=== PATIENT | female | born 1935 | race Caucasian/White ===

== ENCOUNTER 2017-11-19 13:00 | Outpatient (CLI) | payer MEDICARE, OTHER | END 2017-11-19 13:01 | disposition home or self-care (01) | LOC: BICRAD 13:00 | PROVIDERS: ATTEND Nurse Practitioner Family | DX: R06.02 Shortness of breath (principal) | CPT/HCPCS: 71046 ==

== ENCOUNTER 2018-02-21 10:52 | Outpatient (CLI) | payer MEDICARE ==
--- NOTE | 2018-02-21 13:04 | RAD ---
LEFT SCAPULA 2 VIEWS: HISTORY: The patient fell 5 weeks ago. Pain. COMPARISON: None. FINDINGS: There is an incompletely healed distal clavicle fracture. With regard to the scapula, no fracture. No cortical irregularity or periosteal reaction. The visualized left ribs are unremarkable. There is a nonspecific calcification which is presumed to be in the soft tissues measuring 1.6 cm. IMPRESSION: Left clavicle fracture as above. POS: [facility]
--- NOTE | 2018-02-21 13:05 | RAD ---
THREE VIEWS LEFT SHOULDER: HISTORY: Fall five weeks ago. Pain. COMPARISON: None. FINDINGS: Nonhealed distal clavicle fracture. Glenohumeral joint space is preserved. No fracture or dislocation. The visualized scapula and ribs are unremarkable. IMPRESSION: Distal clavicle fracture, unhealed. POS: [facility]
== END 2018-02-21 10:53 | disposition home or self-care (01) ==
LOC: SCSRAD 10:52
PROVIDERS: ATTEND Family Medicine
DX: S42.92XD Fracture of left shoulder girdle, part unspecified, subsequent encounter for fracture with routine healing (principal); S42.032D Displaced fracture of lateral end of left clavicle, subsequent encounter for fracture with routine healing

== ENCOUNTER 2018-03-10 19:30 | Outpatient (CLI) | payer MEDICARE | END 2018-03-10 19:31 | disposition home or self-care (01) | LOC: SLEEPLAB 19:30 | PROVIDERS: ATTEND Physician Assistant | DX: G47.30 Sleep apnea, unspecified (principal); G47.33 Obstructive sleep apnea (adult) (pediatric); I10 Essential (primary) hypertension; I63.9 Cerebral infarction, unspecified; G45.9 Transient cerebral ischemic attack, unspecified | CPT/HCPCS: 95811 ==

== ENCOUNTER 2018-06-05 11:14 | Outpatient (CLI) | payer MEDICARE | END 2018-06-05 11:15 | disposition home or self-care (01) | PROVIDERS: ATTEND Internal Medicine Gastroenterology | DX: R13.10 Dysphagia, unspecified (principal); I67.89 Other cerebrovascular disease | CPT/HCPCS: G8996-GN-CI; G8997-GN-CI; G8998-GN-CI ==

== ENCOUNTER 2018-08-22 13:47 | Inpatient (IN) | payer MEDICARE ==
[~2018-08-22 13:47] MED LIST: ISOVUE-370 76%-LOCM 1 ML ONE
[2018-08-22 14:22] LABS: #Basophils 0.1 thou/uL (0.0-0.2); #Eosinphils 0.4 thou/uL (0.0-0.7); #Lymphocytes 2.5 thou/uL (1.20-3.40); #Monocytes 0.7 thou/uL (0.11-0.59); #Neutrophils 5.1 thou/uL (1.40-6.50); %Basophils 1.2 % (0.0-1.0); %Eosinophils 4.2 % (0.0-10.0); %Lymphocytes 28.5 % (21.0-51.0); %Monocytes 8.4 % (0.0-10.0); %Neutrophils 57.7 % (42.0-75.0); Hemoglobin 15.2 g/dL (12.0-16.0); Mean Corpuscular HGB CONC 32.7 g/dL (32.0-36.0); Mean Corpuscular Hemoglobin 29.6 pg (27.0-31.0); Mean Corpuscular Volume 90.5 fL (78.0-98.0); Mean Platelet Volume 7.3 fL (7.4-10.4); Platelet Count 356 thou/uL (130-400); RBC Distribution Width 12.4 % (11.5-14.5); Red Blood Cell (RBC) Count 5.13 mill/uL (4.20-5.40); White Blood Cell (WBC) Count 8.8 thou/uL (4.8-10.8)
[2018-08-22 14:45] LABS: ALT (SGPT) 14 U/L (8-55); AST (SGOT) 21 U/L (5-34); Albumin 4.3 g/dL (3.4-4.8); Alkaline Phosphatase 79 U/L (40-150); Anion Gap 11 mmol/L (10-20); BUN (Urea Nitrogen) 11 mg/dL (9.8-20.1); Calc. Creatinine Clearance 0 mL/min (70-130); Calcium 9.6 mg/dL (7.8-10.44); Carbon Dioxide 24 mmol/L (23-31); Chloride 105 mmol/L (98-107); Estimated GFR-MDRD 71; Globulin 2.5 g/dL (2.4-3.5); Glucose 116 mg/dL (83-110); Potassium 4.2 mmol/L (3.5-5.1); Protein, Total 6.8 g/dL (6.0-8.3); Sodium 136 mmol/L (136-145)
--- NOTE | 2018-08-22 14:46 | RAD ---
CHEST 1 VIEW: DATE: 08/22/2018. TIME: 2:37 p.m. HISTORY: Chest pain and shortness of breath. FINDINGS: Comparison is made with the exam of 11/19/2017. The heart size is borderline. The aorta is tortuous. The lungs are expanded without focal areas of consolidation, pneumothoraces, or pleural effusions. There is no evidence of jeffrey pulmonary edema. IMPRESSION: No evidence of acute process. POS: [facility]
[2018-08-22 14:51] LABS: CKMB 0.6 ng/mL (0-6.6); Troponin I Less than 0.010 ng/mL (< 0.028)
--- NOTE | 2018-08-22 17:14 | CT ---
CT HEAD NONCONTRAST 08/22/18 HISTORY: Dizziness. Altered mental status. COMPARISON: 03/19/17. FINDINGS: There is no evidence of acute intracranial hemorrhage or infarct. Diffuse cortical atrophy and mild c hronic ischemic small vessel disease. There is no mass effect, or shift of midline structures. Calcif ication within the arterial structures. The visualized paranasal sinuses remain well aerated. IMPRESSION: Chronic type findings are stable. No acute intracranial abnormalities are demonstrated on noncontrast CT head. POS: [facility]
--- NOTE | 2018-08-22 17:26 | CT ---
CT ARTERIOGRAM CHEST WITH IV CONTRAST AND 3D MIP IMAGING: Date: 08/22/18 HISTORY: Chest pain. Dyspnea. FINDINGS: There is good contrast opacification of the pulmonary arteries. Contrast has not yet reached the aort a. Calcification within the arterial structures. Lungs are hyperinflated. No mediastinal adenopathy i s evident. IMPRESSION: 1. No CT evidence of pulmonary embolus. 2. Atherosclerosis. 3. COPD. POS: [facility]
[2018-08-22 18:41] VITALS: BMI 21.6
[2018-08-22 18:50] LABS: Troponin I Less than 0.010 ng/mL (< 0.028)
[2018-08-22] MEDS ORDERED: Ondansetron ODT 4 MG TAB SL PRN (18:54)
[2018-08-22] MEDS ORDERED: Acetaminophen 325 MG TAB PO PRN (18:54)
[2018-08-22] MEDS ORDERED: Ondansetron HCl/PF 4 MG/2 ML Vial IVP PRN (18:54)
[2018-08-22] MEDS ORDERED: Prevnar 13-Val Conj/PF 0.5 ML SYRINGE IM ONE (19:15)
[2018-08-22] MEDS ORDERED: Senokot S 8.6-50 MG TAB PO PRN (19:54)
[2018-08-22] MEDS ORDERED: Nitroglycerin 0.4 MG TAB (25 Tab Bottle) PO PRN (19:54)
[2018-08-22] MEDS: Lisinopril 5 MG TAB PO SCH (20:56)
[2018-08-22] MEDS: Mirtazapine 15 MG TAB PO SCH (20:56)
[2018-08-22] MEDS: Amlodipine 5 MG TAB PO SCH (20:57)
[2018-08-22] MEDS: Carvedilol 6.25 MG TAB PO SCH (20:57)
[2018-08-22 21:29] LABS: Troponin I Less than 0.010 ng/mL (< 0.028)
--- NOTE | 2018-08-23 04:20 | HP ---
REASON FOR ADMISSION: Chest pain, shortness of breath. HISTORY OF PRESENT ILLNESS: The patient gives history of shortness of breath even on minimal exertion. She developed chest tightness from yesterday. No complaints of expectoration, but has had dry cough. Dr. Granger, her apricot packer, has told her that she will need a cardiac catheterization and [place] with transesophageal echo. She has had Watchman device placed in 03/2018. She has no complaints of fever. No palpitations or PND. PAST MEDICAL AND SURGICAL HISTORY: History of hypertension, chronic atrial fibrillation, osteoarthritis, history of prior bleed in the brain with left leg weakness which is resolved with no residual paralysis, history of stroke with no residual paralysis, history of 2 feet of colon removed, breast surgery, bladder surgery, cataract surgery, cholecystectomy, hysterectomy, and tonsillectomy. CURRENT MEDICATIONS: Norvasc 5 mg p.o. at bedtime, Coreg 12.5 mg p.o. at bedtime, hydralazine 25 mg p.o. at bedtime, lisinopril 10 mg p.o. at bedtime, mirtazapine 15 mg p.o. at bedtime. ALLERGIES: She is intolerant to CODEINE. PERSONAL HISTORY: Does not abuse alcohol or drugs. No history of smoking. FAMILY HISTORY: Mother was killed when she was 64 years old. Father at the same age and has had history of CVA. Her daughter in February of this year, she was 63 years old, and she has had history of cancer. Her 4 years ago. [place]. She ambulates by herself mostly, but occasionally uses cane. CODE STATUS: FULL. Power of international bank manager is her granddaughter, Ms. Rosa Hammer and grandson Mr. Amos Lora. REVIEW OF SYSTEMS: The following complete review of systems was negative, unless otherwise mentioned in the HPI or below: Constitutional: Weight loss or gain, ability to conduct usual activities. Skin: Rash, itching. Eyes: Double vision, pain. ENT/Mouth: Nose bleeding, neck stiffness, pain, tenderness. Cardiovascular: Palpitations, dyspnea on exertion, orthopnea. Respiratory: Shortness of breath, wheezing, cough, hemoptysis, fever or night sweats. Gastrointestinal: Poor appetite, abdominal pain, heartburn, nausea, vomiting, constipation, or diarrhea. Genitourinary: Urgency, frequency, dysuria, nocturia. Musculoskeletal: Pain, swelling. Neurologic/Psychiatric: Anxiety, depression. Allergy/Immunologic: Skin rash, bleeding tendency. PHYSICAL EXAMINATION: GENERAL: The patient is an 83-year-old female who is currently not in any acute distress. VITAL SIGNS: Blood pressure 130/92, pulse 96 per minute, respiratory rate 16 per minute, temperature 98.7 degrees Fahrenheit, saturating 96% on room air. NECK: Supple, no elevated JVD. HEENT: Eyes: Extraocular muscles intact. Pupils reacting to light. Oral cavity: Mucous membranes are moist. No exudates or congestion. CARDIOVASCULAR SYSTEM: S1, S2 heard. Irregular rhythm. RESPIRATORY: Air entry 2+ bilateral. No rales or rhonchi. ABDOMEN: Soft, bowel sounds heard. No tenderness, rigidity or guarding. EXTREMITIES: No peripheral edema or calf tenderness. VASCULAR SYSTEM: Peripheral pulses 2+ bilateral, no ischemic ulcerations or gangrene. CENTRAL NERVOUS SYSTEM: No gross focal deficits noted. The patient is alert, awake, and oriented well. PSYCHIATRIC SYSTEM: The patient's mood is euthymic. No hallucinations or delusions. LABORATORY AND X-RAY FINDINGS: EKG done shows atrial fibrillation with rate of 82 beats per minute, there is chronic RBBB seen. White count of 8, H&H 15 and 46, platelet count 356 with 57% neutrophils, MCV is 90. Electrolytes are stable. BUN 11, creatinine 0.7, glucose 116. Troponin x2 is negative. CK-MB 0.6. BNP is 373, albumin is 4.3. CT brain done showed no acute intracranial abnormalities. CT angio chest done showed no evidence of PE. There are signs of arthrosclerosis and COPD. CLINICAL IMPRESSION AND PLAN: The patient will be under observation on telemetry for chest pain, congestive heart failure exacerbation with severe exertional shortness of breath and chest tightness. The patient is scheduled for cardiac catheterization on the of this month by Dr. Granger along with a transesophageal echo. She has had Watchman device placed in March of this year. The patient is not on any anticoagulants due to prior history of bleed in her brain. We will continue her aspirin, Norvasc, Coreg will be split in to 6.25 twice daily same with lisinopril at 5 mg twice daily. She will be given a total of 3 doses of Lasix 40 mg q.12 hourly. We will continue her Remeron at bedtime. The patient says she has animals to take care of and she wants to go home tomorrow. She also does mention that all her medications are at night time and her blood pressure is labile at home. Sometimes the systolic blood pressure drops down to 100 and the next time she checks it is all the way up to 140s. She will be closely monitored and will be reevaluated in the morning after gentle diuresis. She will be with walking program and see if she still gets exertional shortness of breath and chest pain, if so, she will be switched over to inpatient status for possible unstable angina. ELOY
[2018-08-23 04:58] LABS: #Basophils 0.1 thou/uL (0.0-0.2); #Eosinphils 0.4 thou/uL (0.0-0.7); #Lymphocytes 2.1 thou/uL (1.20-3.40); #Monocytes 0.9 thou/uL (0.11-0.59); #Neutrophils 4.8 thou/uL (1.40-6.50); %Basophils 0.8 % (0.0-1.0); %Eosinophils 4.9 % (0.0-10.0); %Lymphocytes 25.6 % (21.0-51.0); %Monocytes 10.3 % (0.0-10.0); %Neutrophils 58.5 % (42.0-75.0); Hemoglobin 14.3 g/dL (12.0-16.0); Mean Corpuscular HGB CONC 31.8 g/dL (32.0-36.0); Mean Corpuscular Hemoglobin 28.7 pg (27.0-31.0); Mean Corpuscular Volume 90.3 fL (78.0-98.0); Mean Platelet Volume 7.4 fL (7.4-10.4); Platelet Count 316 thou/uL (130-400); RBC Distribution Width 12.3 % (11.5-14.5); Red Blood Cell (RBC) Count 4.99 mill/uL (4.20-5.40); White Blood Cell (WBC) Count 8.3 thou/uL (4.8-10.8)
[2018-08-23 05:00] LABS: Anion Gap 9 mmol/L (10-20); BUN (Urea Nitrogen) 11 mg/dL (9.8-20.1); Calc. Creatinine Clearance 50 mL/min (70-130); Calcium 9.5 mg/dL (7.8-10.44); Carbon Dioxide 27 mmol/L (23-31); Cardiac Risk 3.4 (Less than 4.5); Chloride 105 mmol/L (98-107); Cholesterol 189 mg/dl (< 200 Desired); Estimated GFR-MDRD 75; Glucose 106 mg/dL (83-110); HDL Cholesterol 56 mg/dL (>60 Neg Risk); LDL Cholesterol, Calculated 116 mg/dL; Potassium 4.1 mmol/L (3.5-5.1); Sodium 137 mmol/L (136-145); Triglycerides 86 mg/dL (Less than 150)
[2018-08-23] MEDS: Furosemide 40 MG/4 ML VIAL SLOW IVP SCH ×2 (06:02→14:59)
[2018-08-23] MEDS: Aspirin 325 MG TAB PO SCH (08:32)
[2018-08-23] MEDS: Enoxaparin Sodium 40 MG/0.4 ML SYRINGE SC SCH (08:32)
[2018-08-23] MEDS: Lisinopril 5 MG TAB PO SCH ×2 (08:32→20:44)
[2018-08-23] MEDS: Carvedilol 6.25 MG TAB PO SCH ×2 (08:32→20:44)
--- NOTE | 2018-08-23 20:36 | CON ---
DATE OF CONSULT: 08/23/18 HISTORY OF PRESENT ILLNESS: The patient is a very pleasant 83-year-old woman who presents for evaluation of dyspnea. The patient has a history of a previous cerebrovascular accident and atrial fibrillation. The patient had a hem orrhagic stroke on a NOAC. The patient subsequently underwent placement of a Watchman device. She r eports that she has noted increasing dyspnea. This occurs with minimal exertion. She also reports a vague discomfort which occurs with and without exertion. The patient was scheduled by Dr. Granger to undergo a cardiac catheterization and transesophageal echocardiogram to evaluate her Watchman. Th e patient presented to the emergency room with increasing dyspnea. PAST MEDICAL HISTORY: Significant for 1. Atrial fibrillation. 2. Hypertension. 3. History of a hemorrhagic CVA. PAST SURGICAL HISTORY: She has had breast surgery, bladder surgery, cataract surgery, hysterectomy, cholecystectomy, tonsill ectomy. MEDICATIONS: Hydralazine 25 at bedtime, lisinopril 10 daily, Norvasc 5 daily, Coreg 12.5 daily. SOCIAL HISTORY: She lives alone and is a nonsmoker. ALLERGIES: CODEINE. FAMILY HISTORY: No strong family history of coronary artery disease. REVIEW OF SYSTEMS: Ten-point system otherwise unremarkable. No history of easy bruising or bleeding , bright red blood per rectum. PHYSICAL EXAMINATION: GENERAL: Well-developed woman in no acute distress with a blood pressure of 126/83. NECK: No jugular distention, no carotid bruits. LUNGS: Clear to auscultation. HEART: Irregular rate and rhythm, normal S1, S2. ABDOMEN: Nondistended. EXTREMITIES: Showed no edema. VASCULAR: Radial pulses are 2+. LABORATORY RESULTS: White blood count 8.3, hemoglobin 14.3, hematocrit 45.0, platelets are 213. Sod ium is 137, potassium 4.1, chloride 105, bicarbonate 27, BUN 11, creatinine is 0.74. EKG revealed at rial fibrillation with a right bundle branch block. IMPRESSION: 1. Dyspnea. 2. Chest discomfort. 3. Permanent atrial fibrillation, status post Watchman device. 4. History of intracerebral hemorrhage. This patient presents with chest pain and shortness of breath. From a cardiac standpoint, she is chan eduled as an outpatient to undergo a W[place] and cardiac catheterization. I recommended the patient alexis in in the hospital to undergo these procedures to make sure that none of her symptoms are secondary to severe ischemic heart disease. PLAN: Proceed with cardiac catheterization/W[place] if the patient is agreeable to remain in the hospital .
[2018-08-23] MEDS: Mirtazapine 15 MG TAB PO SCH (20:44)
[2018-08-23] MEDS: Amlodipine 5 MG TAB PO SCH (20:44)
[2018-08-23] MEDS: Acetaminophen 325 MG TAB PO PRN (20:45)
[2018-08-24] MEDS: Furosemide 40 MG/4 ML VIAL SLOW IVP SCH (06:34)
[2018-08-24] MEDS: Enoxaparin Sodium 40 MG/0.4 ML SYRINGE SC SCH (08:44)
[2018-08-24] MEDS: Lisinopril 5 MG TAB PO SCH (08:46)
[2018-08-24] MEDS: Aspirin 325 MG TAB PO SCH (08:46)
[2018-08-24] MEDS: Carvedilol 6.25 MG TAB PO SCH ×2 (08:47→21:13)
--- NOTE | 2018-08-24 10:45 | PDOC.PN ---
- Subjective Encounter Start Date: 08/23/18 Encounter Start Time: 10:00 Subjective: chest pain on exertion along with sob -: currently feels good on bed -: no palp or pnd - Objective Resuscitation Status: Resuscitation Status FULL:Full Resuscitation MAR Reviewed: Yes Vital Signs & Weight: Vital Signs (12 hours) Temp Pulse Resp BP BP Pulse Ox 08/24/18 08:47 114/70 08/24/18 08:46 73 114/70 08/24/18 04:45 97.4 F L 73 16 124/71 97 08/23/18 23:26 76 20 110/64 Weight Weight 121 lb 14.4 oz I&O: 08/23/18 08/24/18 08/25/18 06:59 06:59 06:59 Intake Total 294 504 Output Total 300 1400 Balance -6 -896 Result Diagrams: 08/23/18 04:40 08/23/18 04:40 Phys Exam - Physical Examination HEENT: PERRLA, moist MMs Neck: no JVD, supple Respiratory: no wheezing, no rales Cardiovascular: RRR, no significant murmur Gastrointestinal: soft, non-tender, positive bowel sounds Musculoskeletal: no edema, pulses present Neurological: non-focal, moves all 4 limbs Psychiatric: normal affect, A&O x 3 Dx/Plan (1) Chest pain Code(s): R07.9 - CHEST PAIN, UNSPECIFIED Status: Acute (2) Unstable angina Status: Suspected (3) Dyslipidemia Code(s): E78.5 - HYPERLIPIDEMIA, UNSPECIFIED Status: Chronic (4) Afib Code(s): I48.91 - UNSPECIFIED ATRIAL FIBRILLATION Status: Chronic Qualifiers: Atrial fibrillation type: chronic Qualified Code(s): I48.2 - Chronic atrial fibrillation (5) HTN (hypertension) Code(s): I10 - ESSENTIAL (PRIMARY) HYPERTENSION Status: Chronic Qualifiers: Hypertension type: essential hypertension Qualified Code(s): I10 - Essential (primary) hypertension - Plan is on asp, lipitor -: d/w patient about cardiac cath and W[place] on saturday -: gets chest pain on minimal exertion to r/o cad -: split lisinopril and continue coreg -: ef of 50% * .
--- NOTE | 2018-08-24 10:48 | PDOC.PN ---
- Subjective Encounter Start Date: 08/24/18 Encounter Start Time: 08:45 Subjective: no chest pain or palp -: has not ambulated much from yesterday - Objective Resuscitation Status: Resuscitation Status FULL:Full Resuscitation MAR Reviewed: Yes Vital Signs & Weight: Vital Signs (12 hours) Temp Pulse Resp BP BP Pulse Ox 08/24/18 08:47 114/70 08/24/18 08:46 73 114/70 08/24/18 04:45 97.4 F L 73 16 124/71 97 08/23/18 23:26 76 20 110/64 Weight Weight 121 lb 14.4 oz I&O: 08/23/18 08/24/18 08/25/18 06:59 06:59 06:59 Intake Total 294 504 Output Total 300 1400 Balance -6 -896 Result Diagrams: 08/23/18 04:40 08/23/18 04:40 Phys Exam - Physical Examination HEENT: PERRLA, moist MMs Neck: no JVD, supple Respiratory: no wheezing, no rales Cardiovascular: RRR, no significant murmur Gastrointestinal: soft, non-tender, positive bowel sounds Musculoskeletal: no edema, pulses present Neurological: non-focal, moves all 4 limbs Psychiatric: normal affect, A&O x 3 Dx/Plan (1) Chest pain Code(s): R07.9 - CHEST PAIN, UNSPECIFIED Status: Acute (2) Unstable angina Status: Suspected (3) Dyslipidemia Code(s): E78.5 - HYPERLIPIDEMIA, UNSPECIFIED Status: Chronic (4) Afib Code(s): I48.91 - UNSPECIFIED ATRIAL FIBRILLATION Status: Chronic Qualifiers: Atrial fibrillation type: chronic Qualified Code(s): I48.2 - Chronic atrial fibrillation (5) HTN (hypertension) Code(s): I10 - ESSENTIAL (PRIMARY) HYPERTENSION Status: Chronic Qualifiers: Hypertension type: essential hypertension Qualified Code(s): I10 - Essential (primary) hypertension - Plan on asp, lipitor, coreg and lisinopril -: vincenzo stauffer pt worried her sbp is 114 and thinks she is getting too many me -: for cath and W[place] in am -: to ambulate as tolerated -: nitropaste prn for chest pain * . Review of Systems - Medications/Allergies Allergies/Adverse Reactions: Allergies Allergy/AdvReac Type Severity Reaction Status Date / Time codeine Allergy Verified 03/19/17 14:02 Medications: Current Medications Acetaminophen (Tylenol) 650 mg PO Q4H PRN PRN Reason: Headache/Fever/Mild Pain (1-3) Last Admin: 08/23/18 20:45 Dose: 650 mg Aspirin (Aspirin) 325 mg PO DAILY [facility] Last Admin: 08/24/18 08:46 Dose: 325 mg Atorvastatin Calcium (Lipitor) 40 mg PO [facility] Carvedilol (Coreg) 6.25 mg PO BID [facility] Last Admin: 08/24/18 08:47 Dose: 6.25 mg Enoxaparin Sodium (Lovenox) 40 mg SC 0900 [facility] Last Admin: 08/24/18 08:44 Dose: 40 mg Lisinopril (Zestril) 5 mg PO BID [facility] Last Admin: 08/24/18 08:46 Dose: 5 mg Mirtazapine (Remeron) 15 mg PO HS [facility] Last Admin: 08/23/18 20:44 Dose: 15 mg Nitroglycerin (Nitrostat) 0.4 mg PO Q5MIN PRN PRN Reason: Chest Pain Senna/Docusate Sodium (Senokot S) 2 tab PO BID PRN PRN Reason: Constipation Sodium Chloride (Flush - Normal Saline) 10 ml IVF Q12HR [facility] Last Admin: 08/23/18 20:45 Dose: 10 ml Sodium Chloride (Flush - Normal Saline) 10 ml IVF PRN PRN PRN Reason: Saline Flush Last Admin: 08/24/18 08:44 Dose: 10 ml
[2018-08-24] MEDS ORDERED: Communication Order-Pharmacy FS SCH (14:30)
[2018-08-24] MEDS: Mirtazapine 15 MG TAB PO SCH (21:13)
[2018-08-24] MEDS: Atorvastatin Calcium 40 MG TAB PO SCH (21:13)
[2018-08-25] MEDS: Aspirin 325 MG TAB PO SCH (05:56)
[2018-08-25] MEDS: Carvedilol 6.25 MG TAB PO SCH ×2 (05:56→19:59)
[2018-08-25] MEDS ORDERED: Heparin 10,000 UNITS/1 ML VIAL ONE (09:27)
[2018-08-25] MEDS ORDERED: Nitroglycerin 100MG/250ML BOT 0 ML ONE (09:28)
[2018-08-25] MEDS ORDERED: Lidocaine 1% (PF) 30 ML VIAL ONE (09:28)
[2018-08-25] MEDS ORDERED: PROPOFOL 40 ML ONE (09:49)
[2018-08-25] MEDS ORDERED: Iopamidol 370 76% 100 ML VIAL ONE (10:31)
[2018-08-25] MEDS ORDERED: Midazolam HCl 2 mg/2 ml Vial ONE (10:51)
[2018-08-25] MEDS ORDERED: PROPOFOL 200 MG/20 ML VIAL ONE (10:54)
[2018-08-25] MEDS ORDERED: Nitroglycerin 0.4 MG TAB (25 Tab Bottle) SL PRN (11:10)
[2018-08-25] MEDS ORDERED: Sodium Chloride 0.9% 200 ML IV PRN (11:15)
--- NOTE | 2018-08-25 17:42 | PDOC.PN ---
- Subjective Encounter Start Date: 08/25/18 Encounter Start Time: 16:00 Subjective: no chest pain or sob -: feels good - Objective Resuscitation Status: Resuscitation Status FULL:Full Resuscitation MAR Reviewed: Yes Vital Signs & Weight: Vital Signs (12 hours) Pulse Resp BP 08/25/18 05:53 79 16 110/66 Weight Weight 121 lb 12.8 oz I&O: 08/24/18 08/25/18 08/26/18 06:59 06:59 06:59 Intake Total 504 920 Output Total 1400 1000 Balance -896 -80 Result Diagrams: 08/23/18 04:40 08/23/18 04:40 Phys Exam - Physical Examination HEENT: PERRLA, moist MMs Neck: no nodes, no JVD Respiratory: no wheezing, no rales Cardiovascular: RRR, no significant murmur Gastrointestinal: soft, no distention, positive bowel sounds Musculoskeletal: no edema, pulses present Neurological: non-focal, moves all 4 limbs Dx/Plan (1) Chest pain Code(s): R07.9 - CHEST PAIN, UNSPECIFIED Status: Resolved (2) Unstable angina Status: Suspected (3) Dyslipidemia Code(s): E78.5 - HYPERLIPIDEMIA, UNSPECIFIED Status: Chronic (4) Afib Code(s): I48.91 - UNSPECIFIED ATRIAL FIBRILLATION Status: Chronic Qualifiers: Atrial fibrillation type: chronic Qualified Code(s): I48.2 - Chronic atrial fibrillation (5) HTN (hypertension) Code(s): I10 - ESSENTIAL (PRIMARY) HYPERTENSION Status: Chronic Qualifiers: Hypertension type: essential hypertension Qualified Code(s): I10 - Essential (primary) hypertension - Plan cath showed no flow limiting disease per staff, official report is not up o -: -n meditech yet -: [place] showed leaky watchman's device per patient, report on Jammcard pending -: may dc home if ok with -: to f/u with /[facility] * . Review of Systems - Medications/Allergies Allergies/Adverse Reactions: Allergies Allergy/AdvReac Type Severity Reaction Status Date / Time codeine Allergy Verified 03/19/17 14:02 Medications: Current Medications Acetaminophen (Tylenol) 650 mg PO Q4H PRN PRN Reason: Headache/Fever/Mild Pain (1-3) Last Admin: 08/23/18 20:45 Dose: 650 mg Aspirin (Aspirin) 325 mg PO DAILY [facility] Last Admin: 08/25/18 05:56 Dose: 325 mg Atorvastatin Calcium (Lipitor) 40 mg PO HS [facility] Last Admin: 08/24/18 21:13 Dose: 40 mg Carvedilol (Coreg) 6.25 mg PO BID [facility] Last Admin: 08/25/18 05:56 Dose: 6.25 mg Sodium Chloride (Normal Saline 0.9%) 200 mls @ 0 mls/hr IV ONE PRN PRN Reason: (Bolus PRN SBP < 90 mm Hg) Stop: 08/25/18 23:59 Mirtazapine (Remeron) 15 mg PO HS [facility] Last Admin: 08/24/18 21:13 Dose: 15 mg Nitroglycerin (Nitrostat) 0.4 mg SL Q5MIN PRN PRN Reason: Chest Pain Senna/Docusate Sodium (Senokot S) 2 tab PO BID PRN PRN Reason: Constipation Sodium Chloride (Flush - Normal Saline) 10 ml IVF Q12HR [facility] Last Admin: 08/24/18 21:13 Dose: 10 ml Sodium Chloride (Flush - Normal Saline) 10 ml IVF PRN PRN PRN Reason: Saline Flush Last Admin: 08/24/18 08:44 Dose: 10 ml
[2018-08-25] MEDS ORDERED: Polyethylene Glycol 3350 17 GM Packet PO SCH (18:00)
[2018-08-25] MEDS ORDERED: Docusate 100 MG CAP PO SCH (18:00)
--- NOTE | 2018-08-25 18:14 | ECHO ---
TRANSESOPHAGEAL ECHOCARDIOGRAM: DATE OF PROCEDURE: 08/25/18 INDICATION: 83-year-old woman with paroxysmal atrial fibrillation and Watchman device. DESCRIPTION OF PROCEDURE: The patient was taken to the PACU. The patient was sedated by anesthesiology. A transesophageal probe was placed in the distal esophagus and stomach. Echocardiographic images were obtained. The transesophageal probe was removed. FINDINGS: 1. Normal left ventricular systolic function. 2. Normal mitral valve. 3. Mild aortic regurgitation. 4. Mild mitral regurgitation. 5. Mild tricuspid regurgitation. 6. The Watchman device is well positioned with a 1.0 cm leak noted. 7. Atherosclerotic debris in the descending aorta. IMPRESSION: Watchman device was well positioned with a 1.0 cm leak noted around the device.
[2018-08-25] MEDS: Acetaminophen 325 MG TAB PO PRN (18:41)
[2018-08-25] MEDS: Atorvastatin Calcium 40 MG TAB PO SCH (20:00)
[2018-08-25 20:58] VITALS: BP 126/80; TEMP 96.4
--- NOTE | 2018-08-26 13:48 | DIS ---
DATE OF ADMISSION: 08/22/2018 DATE OF DISCHARGE: 08/25/2018 DISCHARGE DISPOSITION: To home. PRIMARY DISCHARGE DIAGNOSES: Recurrent chest pain with suspicion of unstable angina with no flow farr iting disease on catheterization, chronic atrial fibrillation, dyslipidemia and hypertension. PROCEDURES DONE DURING HOSPITALIZATION: The patient had echo with 2D Doppler done which showed an EF of 50%-55%, moderate tricuspid regurgitation. Transesophageal echo done on 08/25/2018 showed normal EF, Watchman device was well positioned with a 1 cm leak noted around the device, atherosclerotic de bris in the descending aorta. Coronary angiogram report is pending at the time of this dictation. H emoglobin and hematocrit 14 and 45 and platelet count 316. Total cholesterol 189, triglycerides 86, LDL 116, HDL 56. Troponin x3 negative. BUN 11, creatinine 0.7, TSH 1.07. DISCHARGE MEDICATIONS: Lisinopril 10 mg p.o. at bedtime, Coreg 6.25 mg twice daily, atorvastatin 40 mg p.o. at bedtime, aspirin 81 mg p.o. daily and mirtazapine 15 mg p.o. at bedtime. ALLERGIES: CODEINE. INPATIENT CONSULT: Dr. Carvajal for Cardiology. DISCHARGE PLAN: Patient to follow up with Dr. Granger as advised and Dr. Malcolm in 2-4 weeks. BRIEF COURSE DURING HOSPITALIZATION: Patient initially came in with complaints of off and on chest p ain with minimal exertion. She was also told that she is due for a transesophageal echo and cardiac catheterization by Dr. Granger. She had Watchman device placed in 03/2018. In view of patient's o ngoing symptoms, patient was admitted to telemetry. She was evaluated by Dr. Alfonzo Carvajal. The pat ient was taken for cardiac catheterization and transesophageal echo on the . Transesophageal echo showed a 1 cm leak around the Watchman device which was well positioned. Per staff, patient did not have any flow limiting disease and the official coronary angiogram results are pending at the time o f this dictation. She has been cleared by Dr. Carvajal for discharge. The patient needs to follow u p with Dr. Granger, her transit bus operator in 2-[address] Malcolm in 2 weeks. She also needs follow u p with primary care physician in 1 week. Please see a [id number] documentation for the day of disc harge on [employer]
== END 2018-08-25 20:00 | disposition home or self-care (01) | DRG 287 ==
LOC: ERS 13:47 → 2SW 18:36 → OBSVTOIN 08-23 14:29 → 2NO 08-23 19:25
PROVIDERS: ADMIT Internal Medicine; ATTEND Internal Medicine
PROC: 4A023N7 Measurement of Cardiac Sampling and Pressure, Left Heart, Percutaneous Approach (ICD-10-PCS; principal; 2018-08-23)
PROC: B2111ZZ Fluoroscopy of Multiple Coronary Arteries using Low Osmolar Contrast (ICD-10-PCS; 2018-08-23)
PROC: B2151ZZ Fluoroscopy of Left Heart using Low Osmolar Contrast (ICD-10-PCS; 2018-08-23)
DX: I25.110 Atherosclerotic heart disease of native coronary artery with unstable angina pectoris (principal); I10 Essential (primary) hypertension; I48.2 Chronic atrial fibrillation; M19.90 Unspecified osteoarthritis, unspecified site; Z86.73 Personal history of transient ischemic attack (TIA), and cerebral infarction without residual deficits; Z79.899 Other long term (current) drug therapy; Z88.5 Allergy status to narcotic agent; F41.9 Anxiety disorder, unspecified; F32.9 Major depressive disorder, single episode, unspecified; I25.2 Old myocardial infarction; E78.5 Hyperlipidemia, unspecified; Z95.818 Presence of other cardiac implants and grafts
CPT/HCPCS: 36415; 70450; 71045; 71275; 80048; 80053; 80061; 82553; 83880; 84443; 84484; 85025; 90471; 90662; 90670; 93005; 93306; 93312; 93458; 93798; 94760; 99152; A4216; C1769; G0008; G0009; J1644; J1650; J1940; J2001; J2250; J2704

== ENCOUNTER 2018-10-16 13:01 | Outpatient (CLI) | payer MEDICARE ==
--- NOTE | 2018-10-16 13:47 | RAD ---
PA AND LATERAL CHEST: History: Dyspnea. FINDINGS: Comparison is made with exam of 08-22-18. The heart size is normal. The aorta is tortuous. The lungs are well expanded without focal areas of c onsolidation, pneumothorax, or pleural effusions. No acute osseous abnormalities are seen. IMPRESSION: No radiographic evidence of acute cardiopulmonary process. POS: [facility]
== END 2018-10-16 13:02 | disposition home or self-care (01) ==
LOC: RAD 13:01
PROVIDERS: ATTEND Internal Medicine Pulmonary Disease
DX: R06.00 Dyspnea, unspecified (principal)
CPT/HCPCS: 71046

== ENCOUNTER 2019-04-17 13:11 | Emergency (ER) | payer MEDICARE ==
[2019-04-17] MEDS ORDERED: Morphine 2 MG/ML SYRINGE ONE (13:42)
[2019-04-17 14:04] LABS: #Basophils 0.1 thou/uL (0.0-0.2); #Eosinphils 0.6 thou/uL (0.0-0.7); #Lymphocytes 1.9 thou/uL (1.20-3.40); #Monocytes 1.1 thou/uL (0.11-0.59); #Neutrophils 5.8 thou/uL (1.40-6.50); %Basophils 1.2 % (0.0-1.0); %Eosinophils 6.4 % (0.0-10.0); %Lymphocytes 20.3 % (21.0-51.0); %Monocytes 11.3 % (0.0-10.0); %Neutrophils 60.8 % (42.0-75.0); Hemoglobin 13.5 g/dL (12.0-16.0); Mean Corpuscular HGB CONC 33.2 g/dL (32.0-36.0); Mean Corpuscular Hemoglobin 29.3 pg (27.0-31.0); Mean Corpuscular Volume 88.4 fL (78.0-98.0); Platelet Count 311 thou/uL (130-400); RBC Distribution Width 12.7 % (11.5-14.5); White Blood Cell (WBC) Count 9.6 thou/uL (4.8-10.8)
[2019-04-17 14:27] LABS: ALT (SGPT) 13 U/L (8-55); AST (SGOT) 18 U/L (5-34); Albumin 3.6 g/dL (3.4-4.8); Alkaline Phosphatase 76 U/L (40-150); Anion Gap 10 mmol/L (10-20); BUN (Urea Nitrogen) 9 mg/dL (9.8-20.1); Bilirubin, Total 0.5 mg/dL (0.2-1.2); CK (CPK) 21 U/L (29-168); Calc. Creatinine Clearance 0 mL/min (70-130); Calcium 9.2 mg/dL (7.8-10.44); Carbon Dioxide 28 mmol/L (23-31); Chloride 101 mmol/L (98-107); Estimated GFR-MDRD 60; Globulin 2.5 g/dL (2.4-3.5); Glucose 109 mg/dL (83-110); Lipase 13 U/L (8-78); Potassium 4.1 mmol/L (3.5-5.1); Protein, Total 6.1 g/dL (6.0-8.3); Sodium 135 mmol/L (136-145)
--- NOTE | 2019-04-17 14:34 | RAD ---
PORTABLE CHEST: Date: 04/17/19 PROVIDED CLINICAL HISTORY: Cough. FINDINGS: Comparison with 10/16/18. The cardiac silhouette appears enlarged. Left subclavian cardiac pacing device has been placed, with lead tips overlying the expected locations of RV and coronary sinus. A coil of metallic density overl ies the expected location of the left atrial appendage and presumably reflects a left atrial appendag e exclusion device. Vascular calcifications are seen. No focal consolidation, pleural fluid, or pneum othorax apparent. IMPRESSION: Cardiomegaly without evidence for an acute cardiopulmonary process. POS: [facility]
== END 2019-04-17 15:06 | disposition home or self-care (01) ==
LOC: ERS 13:11
DX: R05 Cough (principal); I48.91 Unspecified atrial fibrillation; M19.90 Unspecified osteoarthritis, unspecified site; I10 Essential (primary) hypertension; F41.9 Anxiety disorder, unspecified; F32.9 Major depressive disorder, single episode, unspecified; Z79.899 Other long term (current) drug therapy; Z86.73 Personal history of transient ischemic attack (TIA), and cerebral infarction without residual deficits; Z79.891 Long term (current) use of opiate analgesic
CPT/HCPCS: 36415; 71045; 80053; 82550; 83690; 83880; 85025; 93005; 94760; J2270

== ENCOUNTER 2020-04-23 08:43 | Inpatient (IN) | payer MEDICARE, OTHER ==
[2020-04-23] MEDS ORDERED: Morphine 2 MG/ML SYRINGE ONE ×2 (09:19→11:36)
[2020-04-23 10:05] LABS: INR-International Normal Ratio 1.2; PTT 26.3 sec (22.9-36.1); Prothrombin Time 15.1 sec (12.0-14.7)
[2020-04-23 10:10] LABS: ALT (SGPT) 22 U/L (8-55); AST (SGOT) 21 U/L (5-34); Albumin 3.4 g/dL (3.4-4.8); Alkaline Phosphatase 62 U/L (40-110); Anion Gap 11 mmol/L (10-20); BUN (Urea Nitrogen) 18 mg/dL (9.8-20.1); Bilirubin, Total 0.6 mg/dL (0.2-1.2); CK (CPK) 34 U/L (29-168); Calc. Creatinine Clearance 0 mL/min (70-130); Calcium 7.8 mg/dL (7.8-10.44); Carbon Dioxide 23 mmol/L (23-31); Chloride 109 mmol/L (98-107); Estimated GFR-MDRD 77; Globulin 1.7 g/dL (2.4-3.5); Glucose 152 mg/dL (83-110); Magnesium 1.8 mg/dL (1.6-2.6); Potassium 3.8 mmol/L (3.5-5.1); Protein, Total 5.1 g/dL (6.0-8.3); Sodium 139 mmol/L (136-145)
[2020-04-23 10:16] LABS: Hemoglobin 10.6 g/dL (12.0-16.0); Mean Corpuscular HGB CONC 33.7 g/dL (32.0-36.0); Mean Corpuscular Hemoglobin 29.4 pg (27.0-31.0); Mean Corpuscular Volume 87.2 fL (78.0-98.0); Mean Platelet Volume 8.3 fL (7.4-10.4); Platelet Count 266 thou/uL (130-400); RBC Distribution Width 14.2 % (11.5-14.5); Red Blood Cell (RBC) Count 3.61 mill/uL (4.20-5.40); White Blood Cell (WBC) Count 34.6 thou/uL (4.8-10.8)
[2020-04-23 10:23] LABS: Band 9 % (5-11); Lymphocytes 8 % (21-51); MDiff Complete? YES; Monocytes 1 % (0-10); Neutrophil 82 % (42-75)
--- NOTE | 2020-04-23 11:11 | RAD ---
RIGHT HIP 2 VIEWS: Date: 04/23/2020 HISTORY: Injury. FINDINGS: There is a comminuted intertrochanteric fracture of the right hip. Mild displacement. IMPRESSION: Comminuted intertrochanteric fracture. POS: [facility]
--- NOTE | 2020-04-23 11:11 | RAD ---
AP CHEST: Date: 04/23/2020 HISTORY: Fall with injury to hip. COMPARISON: 04/17/2019. FINDINGS: The lung sen are clear. No infiltrate or vascular congestion. Heart size upper normal. Occlusion d evice overlies the left atrial appendage. Pacemaker leads are unchanged from prior exam. IMPRESSION: No acute lung process. POS: [facility]
--- NOTE | 2020-04-23 11:21 | CT ---
CT BRAIN PERFORMED WITHOUT CONTRAST ENHANCEMENT: Date: 04/23/2020 HISTORY: Fell at home, head injury. COMPARISON: 08/22/2018 study. FINDINGS: There is generalized ventricular and sulcal prominence. Decreased attenuation to the periventricular white matter consistent with chronic white matter change. There are no signs of intracerebral hemorrh age or extra-axial fluid collections. Mastoid air cells and visualized sinuses are clear. IMPRESSION: No acute intracranial abnormalities. POS: [facility]
--- NOTE | 2020-04-23 11:24 | RAD ---
RIGHT KNEE 4 VIEWS: Date: 04/23/2020 HISTORY: Fall with injury. Comparison made to knee films of 2015. FINDINGS: Moderately severe degenerative changes at the right knee. Loss of medial joint space with marginal sp urring. No joint effusion. No acute fracture identified. IMPRESSION: Moderate to severe degenerative changes right knee. POS: [facility]
--- NOTE | 2020-04-23 11:25 | RAD ---
RIGHT FEMUR 2 VIEWS: Date: 04/23/2020 HISTORY: Femur injury. FINDINGS: Intertrochanteric fracture of the right hip with coxa vara deformity is present. Moderate arthritic c hanges of the knee are noted. The bones are diffusely demineralized. IMPRESSION: Intertrochanteric fracture right hip. POS: [facility]
[2020-04-23] MEDS ORDERED: Lidocaine 1% PF 5 ML VIAL ONE (11:32)
[2020-04-23] MEDS ORDERED: PHENYLEPHRINE-NS 100 MCG/ML 10 ML SYRINGE ONE (11:32)
[2020-04-23] MEDS ORDERED: PROPOFOL 200 MG/20 ML VIAL ONE (11:32)
[2020-04-23] MEDS ORDERED: Acetaminophen 500 MG TAB ONE (12:09)
[2020-04-23] MEDS ORDERED: Cyclobenzaprine 10 MG TAB ONE (12:25)
[2020-04-23 12:39] LABS: Magnesium 1.9 mg/dL (1.6-2.6)
[2020-04-23 13:11] LABS: Bacteria/HPF 4+ HPF (None Seen); Bilirubin Negative (Negative); Blood, Urine Negative (Negative); Clarity Clear (Clear); Glucose, Urine (Dipstick) 100 mg/dL (Negative); Leukocyte 25 Leu/uL (Negative); Mucous/LPF 1+ LPF (<2+); Nitrite 2+ (Negative); Protein, Urine (Dipstick) Negative (Neg-Trace); RBC/HPF 0-3 HPF (0-3); Squamous Epithelial None Seen HPF (0-3); Urobilinogen Normal mg/dL (Less than 2)
[2020-04-23] MEDS ORDERED: Ibuprofen 200 MG TAB PO PRN (13:13)
[2020-04-23] MEDS ORDERED: Promethazine HCl 25 MG/ML VIAL IM PRN (13:13)
[2020-04-23] MEDS ORDERED: traMADol HCl 50 MG TAB PO PRN ×2 (13:13→19:29)
[2020-04-23] MEDS ORDERED: Ondansetron PF 4 MG/2 ML Vial IVP PRN (13:13)
[2020-04-23] MEDS ORDERED: Sodium Chloride 0.9% 500 ML IV SCH (13:15)
[2020-04-23] MEDS ORDERED: Ketorolac Tromethamine 30 MG/ML VIAL IVP SCH (13:15)
[2020-04-23] MEDS ORDERED: Sodium Chloride 0.9% 1,000 ML IV SCH ×2 (13:15→13:43)
[2020-04-23] MEDS ORDERED: Dextrose 50% Abboject 50 ML SYRINGE SLOW IVP PRN (13:17)
[2020-04-23] MEDS ORDERED: Dextrose 5% in Water 1,000 ML IV PRN (13:17)
[2020-04-23] MEDS ORDERED: hydrALAZINE 20 MG/ML VIAL SLOW IVP PRN (13:17)
[2020-04-23] MEDS ORDERED: Ondansetron ODT 4 MG TAB PO PRN (13:17)
[2020-04-23] MEDS ORDERED: Morphine 2 MG/ML SYRINGE SLOW IVP PRN ×2 (13:17→19:29)
[2020-04-23] MEDS ORDERED: CEFAZOLIN 2 GM in Premix Bag 1 BAG IVPB SCH (13:30)
--- NOTE | 2020-04-23 14:46 | HP ---
REQUESTING PHYSICIAN: Adria Fofana MD CONSULTS: Orthopedic Surgery, Edmar Dumas MD CHIEF COMPLAINT: Fall, right hip pain. HISTORY OF PRESENT ILLNESS: This is an 85-year-old female who presented to the emergency room after a fall early this morning complaining of right hip pain. The patient states she got up to go to the kitchen without turning her light on and fell. The patient denies any loss of consciousness. The patient denies any dizziness, weakness, chest pain, or shortness of breath. The patient denies any recent illness including cough, cold, fever, or chills. The patient lives at home alone on [address] [place] and cares for herself. She does have grandchildren that live out of town. The patient only uses a cane toe-walk whenever she is going long distances and outside. The patient reports being able to walk long distances without feeling short of breath or having chest pain. The patient denies being on any anticoagulant, but was in the past due to her chronic atrial fibrillation. The patient had a Watchman placed approximately two years ago. The patient also had a fall on her porch outside two days ago, falling, hitting her head. The patient denied any loss of consciousness and states that she was able to get up and had no issues. When she fell early this morning, the patient was not able to ambulate. She scooted herself to her living room and pressed her Life Alert button. The patient reports that she did lay on the floor for approximately 3 hours, as she thought the pain would go away and she would be able to get up and get in her chair. The patient has been n.p.o. since 5:00 p.m. yesterday. Trauma Services were asked to admit the patient. The patient is pending evaluation by Orthopedic Surgery, Dr. Dumas. The patient's pain is currently controlled. The patient was given morphine in the emergency room. The patient had an echocardiogram in 2018, which showed an ejection fraction of 50% to 55%. The patient also reports being on antidepressant medications in which she has recently had an increase in her dose. The patient is unable to verbalize the name of the antidepressant. PAST MEDICAL HISTORY: Hypertension, chronic atrial fibrillation, osteoarthritis , prior brain bleed with additional left-sided leg weakness which resolved, history of depression. SURGICAL HISTORY: Watchman placement, pacemaker placement, bowel resection, breast surgery, bladder surgery, cataract surgery, cholecystectomy, hysterectomy, and tonsillectomy. CURRENT MEDICATIONS: Unknown. ALLERGIES: NO KNOWN DRUG ALLERGIES, ALTHOUGH CODEINE DOES NOT MAKE HER FEEL WELL. SOCIAL HISTORY: Denies alcohol use, drug use, or history of smoking. REVIEW OF SYSTEMS: A 10-point review of systems is negative unless otherwise indicated in the above HPI. PHYSICAL EXAMINATION: GENERAL: Well-appearing elderly female, awake, alert, in no distress. VITAL SIGNS: Blood pressure 118/84, temperature 97.6, pulse 82, respirations 14 , and SpO2 of 97% on room air. HEENT: Head is atraumatic and normocephalic. Mucous membranes are mildly dry, dry lips, midface stable, normal range of motion of neck, no JVD, trachea midline. RESPIRATORY: Bilateral breath sounds clear. No wheezing, rales, or rhonchi. CARDIAC: Irregularly irregular rhythm. No murmurs. ABDOMEN: Soft, nontender, nondistended. EXTREMITIES: No peripheral edema, neurovascularly intact x4, right lower extremity mildly shortened. NEUROLOGIC: No focal deficits, GCS 15. LABORATORY DATA: Urinalysis with 100 glucose, positive nitrites, positive leukocyte esterase, 7 to 10 wbc's, 4+ bacteria, and 1+ urine mucus. WBC 34.6, RBC 3.61, hemoglobin 10.6, hematocrit 31.5, platelets 266, bands 9. PT 15.1, INR 1.2. Sodium 139, potassium 3.8, chloride 108, carbon dioxide 23, BUN 18, creatinine 0.73, estimated GFR 77, glucose 152, lactate 2.4, calcium 7.8, phosphorus 3.0, magnesium 1.9, AST 21, ALT 22, alkaline phos 62. CK 234, troponin I 0.016. Serum total protein 5.1, globulin 1.7. A 12-lead EKG, atrial fibrillation with controlled rate. DIAGNOSTIC DATA: 1. Chest x-ray, impression, no infiltrate or vascular congestion. Heart size upper normal limits. No acute lung process. 2. Brain CT, impression, no acute intracranial abnormalities. 3. Right hip, impression, comminuted intertrochanteric fracture. 4. Right knee x-ray, impression, [id number] degenerative changes right knee. 5. Right femur, impression, intertrochanteric fracture, right hip. IMPRESSION: 1. Status post ground level fall. 2. Right intertrochanteric femur fracture. 3. Leukocytosis, likely from urinary tract infection. 4. Complicated urinary tract infection, present on admission. 5. History of hypertension, chronic atrial fibrillation, pacemaker, Watchman, arthritis right knee, depression and prior cerebrovascular accident. PLAN: Admit to the ortho floor. Pain regimen. Fluid resuscitation. We will give the patient 500 mL normal saline bolus and maintenance fluids at 100 an hour of normal saline before going to the OR today with Dr. Dumas. N.p.o. the patient can have a regular diet postop. We will treat the patient's urinary tract infection with Cipro IV and then p.o. Cipro afterwards for seven days. Urine Culture is pending, will adjust antibiotics as needed. Physical and Occupational Therapy to work with the patient postop. We will have nurse obtain the patient's home medication. Pacemaker has been interrogated. The plan was discussed with the patient and grandson who agreed. Plan will be discussed with the attending after this dictation. Job ID: [id number] [facility]
[2020-04-23] MEDS ORDERED: Fentanyl 100 MCG/2 ML VIAL ONE ×2 (14:47→16:50)
[2020-04-23] MEDS ORDERED: Phenylephrine 10 MG/ML VIAL ONE (14:54)
[2020-04-23 15:21] VITALS: BMI 22.1
[2020-04-23] MEDS: Acetaminophen 500 MG TAB PO SCH ×2 (16:21→20:18)
[2020-04-23] MEDS: traMADol HCl 50 MG TAB PO SCH ×2 (16:21→20:19)
--- NOTE | 2020-04-23 16:28 | RAD ---
INTRAOPRETAIVE IMAGING OF THE RIGHT HIP: 04/23/20 HISTORY: ORIF: FINDINGS: The proximal right femur fracture has been treated with a short intramedullary robert with a femoral nec k screw in the distal interlocking screw. There is anatomic alignment of the fracture site. IMPRESSION: ORIF as detailed above. POS: [facility]
--- NOTE | 2020-04-23 18:47 | OP ---
DATE OF PROCEDURE: 04/23/2020 PREOPERATIVE DIAGNOSIS: Right intertrochanteric femur fracture. POSTOPERATIVE DIAGNOSIS: Right intertrochanteric femur fracture. PROCEDURE PERFORMED: Right TFN intertrochanteric femur. ANESTHESIA: General. STRUCTURAL STEEL FITTER: None. IMPLANTS: Synthes TFNA 11 x 170 mm with 100 mm hip screw. COMPLICATIONS: None. DRAINS: None. SPECIMEN: None. ESTIMATED BLOOD LOSS: 50 mL. INDICATIONS FOR PROCEDURE: The patient is a pleasant 85-year-old lady, status post ground level fall at home, sustaining a right intertrochanteric femur fracture. After discussion with the patient including risks and benefits, we decided to proceed with TFNA placement to stabilize this fracture. Risks include, but are not limited to, bleeding, infection, nerve injury, DVT, PE, malunion, nonunion, and hardware failure. The patient appears to understand and does wish to proceed. Informed consent has been obtained. DESCRIPTION OF PROCEDURE: The patient was brought to the operating room and a time-out performed followed by induction of general anesthesia. Next, the patient was positioned supine on the fracture table and a sterile prep and drape was performed of the right lateral thigh. Next, a small incision was made proximal to the tip of the greater trochanter. After skin was sharply incised, dissection was carried down bluntly such that the tip of the greater trochanter could be palpated. A threaded guidewire was then inserted at the tip of the greater trochanter and checked in both AP and lateral C-arm imaging. Next, the reamer was passed over this threaded guidewire to gain access to the intramedullary canal. An 11 x 170 mm TFNA was then passed down the canal. Once down at an appropriate position, a second incision was then made and a threaded guidewire using the jig was passed through the nail up the femoral neck into the femoral head approaching a [id number] position. At the completion of this, measurement was taken off this pin and then reaming performed over the pin. Next, a 105 mm hip screw was passed over this guidewire. Once appropriately positioned, the jig was removed and then a single distal Crosslock screw was per placed using the same distal incision. At the completion of this, the jig was removed from the top of the nail. Final AP and lateral C-arm images were obtained. This was then followed by wound closure. The fascia was closed with 0 Vicryl, followed by 2-0 Vicryl subcutaneously and akil for the skin. Xeroform gauze and tape dressing was applied to the lateral thigh and then the patient was transferred to recovery room in stable condition. There were no complications. The patient tolerated the procedure well. Job ID: [id number]
[2020-04-23] MEDS: Famotidine/PF 20 mg/2ml Vial SLOW IVP SCH (20:20)
[2020-04-23] MEDS: Ciprofloxacin 500 MG TAB PO SCH (20:20)
[2020-04-23] MEDS: Senokot S 8.6-50 MG TAB PO SCH (20:21)
[2020-04-23] MEDS ORDERED: Nitrofurantoin Monohyd/M-Cryst 100 MG CAP PO SCH (21:00)
--- NOTE | 2020-04-23 21:10 | PRG ---
DATE OF SERVICE: 04/23/2020 SUBJECTIVE: The patient was seen this evening. Postoperatively, she was status post fixation of her right intertrochanteric femur fracture. She reported her pain was well controlled. She did not have any interested in eating anything; however, she did agree to have some ice cream. She is tolerating liquids fine. OBJECTIVE: VITAL SIGNS: Temperature 97.6, pulse 79, respirations 16, oxygen saturation 98% on room air, and blood pressure 115/75. GENERAL: Well-appearing elderly female, lying in bed with no signs of acute distress. PULMONARY: Equal chest rise and fall. No signs of acute respiratory distress. ASSESSMENT: 1. Status post multiple recent falls. 2. Right intertrochanteric femur fracture, status post repair. 3. Urinary tract infection and associated leukocytosis. 4. History of atrial fibrillation, Watchman's. 5. Arthritis to right knee. 6. Hypertension. 7. Previous TBI without any deficits. PLAN: Continue current regular diet. Continue normal saline at 100 an hour for a total of one additional liter. Continue Jerry overnight. Discontinue in the morning as the patient has UTI. Continue Cipro. PT/OT to start working with the patient tomorrow. We will change her diet to a regular soft diet as she does not have her dentures at this time. The patient will likely need placement in acute rehab facility. Job ID: [id number] [facility]
[2020-04-23] MEDS: CEFAZOLIN 2 GM in Premix Bag 1 BAG IVPB SCH (22:13)
[2020-04-24] MEDS: Acetaminophen 500 MG TAB PO SCH ×4 (02:14→20:27)
[2020-04-24] MEDS: traMADol HCl 50 MG TAB PO SCH ×4 (02:14→20:27)
[2020-04-24 04:39] LABS: Anion Gap 8 mmol/L (10-20); BUN (Urea Nitrogen) 20 mg/dL (9.8-20.1); Calc. Creatinine Clearance 51 mL/min (70-130); Calcium 7.1 mg/dL (7.8-10.44); Carbon Dioxide 24 mmol/L (23-31); Chloride 109 mmol/L (98-107); Estimated GFR-MDRD 77; Glucose 130 mg/dL (83-110); Phosphorus 3.2 mg/dL (2.3-4.7); Potassium 4.3 mmol/L (3.5-5.1); Sodium 137 mmol/L (136-145)
[2020-04-24] MEDS: Ciprofloxacin 500 MG TAB PO SCH ×2 (05:59→20:26)
[2020-04-24 06:38] LABS: Hemoglobin 8.7 g/dL (12.0-16.0); Mean Corpuscular HGB CONC 33.7 g/dL (32.0-36.0); Mean Corpuscular Hemoglobin 29.5 pg (27.0-31.0); Mean Corpuscular Volume 87.6 fL (78.0-98.0); Mean Platelet Volume 8.2 fL (7.4-10.4); Platelet Count 225 thou/uL (130-400); RBC Distribution Width 14.4 % (11.5-14.5); Red Blood Cell (RBC) Count 2.94 mill/uL (4.20-5.40); White Blood Cell (WBC) Count 16.9 thou/uL (4.8-10.8)
[2020-04-24] MEDS: CEFAZOLIN 2 GM in Premix Bag 1 BAG IVPB SCH ×2 (07:26→14:37)
[2020-04-24 08:21] LABS: Band 12 % (5-11); Lymphocytes 6 % (21-51); MDiff Complete? YES; Monocytes 3 % (0-10); Neutrophil 79 % (42-75)
[2020-04-24] MEDS: Polyethylene Glycol 3350 17 GM Packet PO SCH (08:34)
[2020-04-24] MEDS: Famotidine/PF 20 mg/2ml Vial SLOW IVP SCH ×2 (08:35→20:27)
[2020-04-24] MEDS: Aspirin 81 mg Enteric Coated Tablet PO SCH ×2 (08:35→20:26)
[2020-04-24] MEDS: Senokot S 8.6-50 MG TAB PO SCH ×2 (08:35→20:26)
[2020-04-24] MEDS: Ascorbic Acid 500 mg Chewable Tablet PO SCH ×2 (08:35→20:27)
[2020-04-24] MEDS: Ferrous Sulfate 325 MG TAB PO SCH ×2 (08:35→17:16)
[2020-04-24] MEDS: Carvedilol 6.25 MG TAB PO SCH (08:36)
[2020-04-24] MEDS: Scopolamine 1.5 mg/72 hour Patch TD SCH (12:05)
--- NOTE | 2020-04-24 15:34 | PRG ---
DATE OF SERVICE: 04/24/2020 SUBJECTIVE: The patient remains on the surgical floor, awake and alert, in no distress. The patient is postoperative day #1 status post right TFN intertrochanteric femur. The patient reports that her pain is well controlled at this time. She has not gotten up with Physical Therapy yet. The patient's appetite is mildly decreased and she states she did not really like the food. The patient was offered Ensure. The patient also reports some mild dizzy feeling and her head feeling full. The patient states this is not anything new. The patient did have a carotid ultrasound done in 2017, with no stenosis noted. OBJECTIVE: VITAL SIGNS: Temperature 97.5, pulse 81, respirations 16, SpO2 of 97% on room air, and blood pressure 109/69. GENERAL: Well-appearing elderly female, awake and alert, in no distress. RESPIRATORY: Bilateral breath sounds clear. No wheezing, rales, or rhonchi. CARDIAC: Irregularly irregular rhythm. No murmurs. No carotid bruit. ABDOMEN: Soft, nontender, and nondistended. EXTREMITIES: Moves all extremities. No gross edema. Neurovascularly intact x4. Right hip dressing is clean, dry, and intact with ice pack in place. NEUROLOGIC: No focal deficits. GCS 15. LABORATORY DATA: WBC 16.9, RBC 2.94, hemoglobin 8.7, hematocrit 25.8, and platelets 225. Sodium 137, potassium 4.3, chloride 109, carbon dioxide 24, BUN 20, creatinine 0.72, estimated GFR 77, glucose 130, and calcium 7.1. Phosphorus 3.2. Magnesium 2.0. Urine culture positive for gram-negative rods, pending sensitivity report. IMPRESSION: 1. Status post ground-level fall. 2. Right intertrochanteric femur fracture, postoperative day #1 status post repair. 3. Leukocytosis, improving. 4. Complicated urinary tract infection, present on admission. 5. History of hypertension. 6. Chronic atrial fibrillation. 7. Pacemaker. 8. Watchman. 9. Arthritis, right knee. 10. Depression. 11. Prior cerebrovascular accident without deficits. PLAN: Continue supportive care and pain regimen. Continue to encourage nutritional intake. The patient has been instructed she needs to increase her intake for proper healing. We will place the patient on VTE prophylaxis, aspirin b.i.d. We will monitor the patient's hemoglobin and hematocrit to ensure it remains stable. We will continue the patient's oral antibiotics for her urinary tract infection, pending sensitivities. Physical and occupational therapy. We will add a scopolamine patch to see if this helps with her dizziness. We will also add iron and vitamin C. We will hold the patient's Remeron. The plan was discussed with the patient who agrees. Job ID: [id number]
[2020-04-24] MEDS: Carvedilol 25 MG TAB PO SCH (20:27)
--- NOTE | 2020-04-24 23:48 | PRG ---
DATE OF SERVICE: 04/24/2020 SUBJECTIVE: The patient was seen this evening during rounds. She was lying in bed, resting comfortably, and asleep with no signs of acute distress. Nursing reported no acute events. OBJECTIVE: VITAL SIGNS: Temperature 98.3, pulse 81, respirations 16, oxygen saturation 93% on room air, and blood pressure 147/75. GENERAL: Well-appearing elderly female, lying in bed, asleep with no signs of acute distress. PULMONARY: Equal chest rise and fall. No signs of acute respiratory distress. ASSESSMENT: 1. Status post ground level fall. 2. Right intertrochanteric femur fracture, status post repair. 3. Urinary tract infection, stable. 4. History of atrial fibrillation, Watchman, arthritis of the right knee, hypertension, and previous traumatic brain injury without any deficits. PLAN: Continue current diet and pain regimen. Continue physical and occupational therapy. Continue Cipro for a total of 7 days. Continue home medications. We will restart her antihypertensives for tomorrow with hold parameters. Job ID: [id number]
[2020-04-25] MEDS: traMADol HCl 50 MG TAB PO SCH ×4 (02:59→20:26)
[2020-04-25] MEDS: Acetaminophen 500 MG TAB PO SCH ×4 (02:59→20:25)
[2020-04-25 04:52] LABS: Band 6 % (5-11); Hemoglobin 7.4 g/dL (12.0-16.0); Lymphocytes 7 % (21-51); MDiff Complete? YES; Mean Corpuscular HGB CONC 32.9 g/dL (32.0-36.0); Mean Corpuscular Hemoglobin 28.9 pg (27.0-31.0); Mean Platelet Volume 8.4 fL (7.4-10.4); Monocytes 5 % (0-10); Neutrophil 82 % (42-75); Platelet Count 174 thou/uL (130-400); RBC Distribution Width 14.1 % (11.5-14.5); Red Blood Cell (RBC) Count 2.57 mill/uL (4.20-5.40); White Blood Cell (WBC) Count 12.8 thou/uL (4.8-10.8)
[2020-04-25] MEDS: Ciprofloxacin 500 MG TAB PO SCH ×2 (05:16→20:25)
[2020-04-25 05:27] LABS: Anion Gap 10 mmol/L (10-20); BUN (Urea Nitrogen) 20 mg/dL (9.8-20.1); Calc. Creatinine Clearance 52 mL/min (70-130); Calcium 7.8 mg/dL (7.8-10.44); Carbon Dioxide 23 mmol/L (23-31); Chloride 106 mmol/L (98-107); Estimated GFR-MDRD 78; Glucose 130 mg/dL (83-110); Phosphorus 2.3 mg/dL (2.3-4.7); Potassium 4.2 mmol/L (3.5-5.1); Sodium 135 mmol/L (136-145)
[2020-04-25] MEDS: Senokot S 8.6-50 MG TAB PO SCH ×2 (09:41→20:25)
[2020-04-25] MEDS: Aspirin 81 mg Enteric Coated Tablet PO SCH ×2 (09:41→20:25)
[2020-04-25] MEDS: Ascorbic Acid 500 mg Chewable Tablet PO SCH ×2 (09:41→20:25)
[2020-04-25] MEDS: Carvedilol 6.25 MG TAB PO SCH (09:42)
[2020-04-25] MEDS: Ferrous Sulfate 325 MG TAB PO SCH ×2 (09:42→16:00)
[2020-04-25] MEDS: Amlodipine 5 MG TAB PO SCH (09:43)
[2020-04-25] MEDS: Polyethylene Glycol 3350 17 GM Packet PO SCH (09:44)
[2020-04-25] MEDS ORDERED: Sodium Phosphate 30 MMOL in Sodium Chloride 0.9% 250 ML 250 ML IVPB SCH (16:45)
--- NOTE | 2020-04-25 17:27 | PRG ---
DATE OF SERVICE: 04/25/2020 SUBJECTIVE: The patient remains on the surgical floor. She is awake, alert, in no distress. The patient is postop day #2, status post right TFN intertrochanteric femur repair. The patient had no overnight events. The patient's pain was well controlled at this time. The patient reports that she did not like the food, therefore, did not eat much. The patient was instructed that she needed to the increase her intake and drink Ensure to help promote healing. The patient was able to walk 80 feet with physical therapy yesterday. OBJECTIVE: VITAL SIGNS: Temperature 96.8, pulse 83, respirations 16, SpO2 of 94% on room air, and blood pressure 136/65. GENERAL: Well-appearing elderly female, awake, alert, in no distress. RESPIRATORY: Good inspiratory and expiratory effort, bilateral breath sounds clear. ABDOMEN: Soft, nontender, nondistended. EXTREMITIES: Moves all extremities, neurovascularly intact, right hip dressing is clean, dry, and intact. NEUROLOGIC: GCS 15. No focal deficits. LABORATORY DATA: WBC 12.8, RBC 2.57, hemoglobin 7.4, hematocrit 22.6, and platelets 174. Sodium 135, potassium 4.2, chloride 106, BUN 20, creatinine 0.71, estimated GFR 78, glucose 130, calcium 7.8, phosphorus 2.3, and magnesium 2.0. Urine culture, sensitivity report pending. IMPRESSION: 1. Status post ground level fall. 2. Right intertrochanteric femur fracture, postoperative day #2 status post repair. 3. Leukocytosis, improving. 4. Urinary tract infection, present on admission. 5. History of hypertension. 6. Chronic atrial fibrillation, pacemaker, Watchman. 7. Arthritis, right knee. 8. Depression. 9. Prior cerebral vascular accident without deficits. 10. Hyponatremia. PLAN: Continue supportive care and pain regimen. Continue to encourage nutritional intake. We will supplement with Ensure. Increase physical and occupational therapy. Continue VTE prophylaxis with aspirin and continue iron and vitamin C. We will repeat labs in the morning, make sure that her hemoglobin and hematocrit are stable. We will replace electrolytes with sodium phosphorus for hyponatremia and also a free water restriction with 1 L, but may have unlimited Gatorade. The patient is pending placement to inpatient rehab. The patient was seen by Dr. Lovett during morning rounds. The plan was discussed with the patient who agrees. Job ID: [id number]
[2020-04-25] MEDS: Oxybutynin 5 MG TAB PO SCH (20:25)
[2020-04-25] MEDS: Carvedilol 25 MG TAB PO SCH (20:25)
[2020-04-25] MEDS: Lisinopril 10 MG TAB PO SCH (20:26)
[2020-04-25] MEDS ORDERED: Cyclobenzaprine 10 MG TAB PO SCH (21:45)
--- NOTE | 2020-04-25 22:45 | PRG ---
DATE OF SERVICE: 04/25/2020 SUBJECTIVE: The patient was seen this evening during rounds. She was sitting up in bed with no signs of acute distress. She reported having some crampy pain in her right thigh and agreed to try a small dose of Flexeril. Diet is poor, however she is tolerating food. OBJECTIVE: VITAL SIGNS: Temperature 97.5, pulse 78, respirations 18, oxygen saturation 94% on room air, and blood pressure 146/63. GENERAL: Well-appearing elderly female, sitting up in bed with no signs of acute distress. PULMONARY: Equal chest rise and fall. No signs of acute respiratory distress. ASSESSMENT: 1. Status post multiple recent falls. 2. Right intertrochanteric femur fracture, status post repair. 3. Urinary tract infection. 4. History of atrial fibrillation, Watchman, arthritis of the right knee, hypertension, and traumatic brain injury. PLAN: Continue current diet and pain regimen. Try 5 mg dose of oral Flexeril this evening. Continue Cipro for a total of 5 to 7 days. Follow up culture results, so far they have grown gram-negative rods. We will follow up final results and sensitivities and adjust antibiotics as necessary. The patient is pending placement at acute rehab facility. Job ID: [id number]
[2020-04-26] MEDS: traMADol HCl 50 MG TAB PO SCH ×4 (02:34→20:15)
[2020-04-26] MEDS: Acetaminophen 500 MG TAB PO SCH ×4 (02:34→20:15)
[2020-04-26] MEDS: Ciprofloxacin 500 MG TAB PO SCH ×2 (05:07→20:15)
[2020-04-26 06:08] LABS: #Eosinphils 0.2 thou/uL (0.0-0.7); #Lymphocytes 2.1 thou/uL (1.20-3.40); #Monocytes 1.3 thou/uL (0.11-0.59); #Neutrophils 9.4 thou/uL (1.40-6.50); %Basophils 0.2 % (0.0-1.0); %Eosinophils 1.4 % (0.0-10.0); %Lymphocytes 15.9 % (21.0-51.0); %Monocytes 10.3 % (0.0-10.0); %Neutrophils 72.2 % (42.0-75.0); Hemoglobin 7.7 g/dL (12.0-16.0); Mean Corpuscular HGB CONC 34.6 g/dL (32.0-36.0); Mean Corpuscular Hemoglobin 30.1 pg (27.0-31.0); Mean Platelet Volume 8.2 fL (7.4-10.4); Platelet Count 212 thou/uL (130-400); Red Blood Cell (RBC) Count 2.55 mill/uL (4.20-5.40)
[2020-04-26 06:24] LABS: Anion Gap 10 mmol/L (10-20); BUN (Urea Nitrogen) 20 mg/dL (9.8-20.1); Calc. Creatinine Clearance 57 mL/min (70-130); Calcium 7.7 mg/dL (7.8-10.44); Carbon Dioxide 26 mmol/L (23-31); Chloride 103 mmol/L (98-107); Estimated GFR-MDRD 87; Glucose 117 mg/dL (83-110); Magnesium 1.9 mg/dL (1.6-2.6); Phosphorus 3.8 mg/dL (2.3-4.7); Potassium 3.8 mmol/L (3.5-5.1); Sodium 135 mmol/L (136-145)
[2020-04-26] MEDS ORDERED: Magnesium 2 GM/50 ML 2 GM in Premix Bag 1 BAG IVPB SCH (07:15)
[2020-04-26] MEDS: Aspirin 81 mg Enteric Coated Tablet PO SCH ×2 (08:53→20:14)
[2020-04-26] MEDS: Amlodipine 5 MG TAB PO SCH (08:55)
[2020-04-26] MEDS: Ferrous Sulfate 325 MG TAB PO SCH ×2 (08:55→18:15)
[2020-04-26] MEDS: Carvedilol 6.25 MG TAB PO SCH (08:55)
[2020-04-26] MEDS: Oxybutynin 5 MG TAB PO SCH ×2 (08:56→20:15)
[2020-04-26] MEDS: Ascorbic Acid 500 mg Chewable Tablet PO SCH ×2 (08:56→20:14)
[2020-04-26] MEDS: Polyethylene Glycol 3350 17 GM Packet PO SCH (08:57)
[2020-04-26] MEDS: Senokot S 8.6-50 MG TAB PO SCH ×2 (08:57→20:15)
[2020-04-26] MEDS: Cyclobenzaprine 10 MG TAB PO PRN ×2 (08:59→18:15)
--- NOTE | 2020-04-26 17:46 | PRG ---
DATE OF SERVICE: 04/26/2020 SUBJECTIVE: The patient was seen during morning rounds, awake, alert, in no distress. The patient reports her pain is controlled at this time. She is postop day #3 status post repair of her right intertrochanteric femur fracture. The patient did complain overnight of some muscle spasms, which was relieved with some Flexeril. OBJECTIVE: VITAL SIGNS: Blood pressure 146/63, pulse 80, respirations 16, SpO2 of 95% on room air. GENERAL: Well-appearing elderly female, awake, alert, no distress. RESPIRATORY: Good inspiratory and expiratory effort, breath sounds clear. ABDOMEN: Soft, nontender, nondistended. EXTREMITIES: Moves all extremities. Neurovascularly intact x4. Right hip dressing is clean, dry, and intact. NEUROLOGIC: GCS 15. LABORATORY DATA: WBC 13.0, RBC 2.55, hemoglobin 7.7, hematocrit 22.2, platelets 212. Sodium 135, potassium 3.8, chloride 103, BUN 20, creatinine 0.65, estimated GFR 87, glucose 117, calcium 7.7, phosphorus 3.8, magnesium 1.9. The patient's urine culture is positive for Enterobacter. The patient is currently on Cipro, which is sensitive. IMPRESSION: 1. Status post ground level fall. 2. Right intertrochanteric femur fracture, postop day #3 status post repair. 3. Leukocytosis, improving. 4. Urinary tract infection present on admission, on appropriate antibiotics according to culture and sensitivity. 5. Hyponatremia. 6. History of hypertension, chronic atrial fibrillation, pacemaker, Watchman, arthritis of right knee, depression, prior cerebrovascular accident without deficits. PLAN: Continue supportive care and pain regimen. Continue to encourage an increased physical therapy and nutrition. The patient is pending placement to inpatient rehab, pending insurance authorization. The patient was examined by Dr. Lovett during morning rounds. Job ID: [id number]
[2020-04-26] MEDS ORDERED: Phenazopyridine HCl 97.5 MG TABLET PO SCH (18:45)
[2020-04-26] MEDS: Phenazopyridine HCl 97.5 MG TABLET PO PRN (19:01)
[2020-04-26] MEDS: Lisinopril 10 MG TAB PO SCH (20:14)
[2020-04-26] MEDS: Carvedilol 25 MG TAB PO SCH (20:15)
[2020-04-27] MEDS: Acetaminophen 500 MG TAB PO SCH ×4 (03:02→20:38)
[2020-04-27] MEDS: traMADol HCl 50 MG TAB PO SCH ×4 (03:03→20:39)
[2020-04-27] MEDS: Ciprofloxacin 500 MG TAB PO SCH ×2 (05:03→20:39)
--- NOTE | 2020-04-27 06:42 | PDOC.BPN ---
- Brief Progress Note Date of Service: 04/27/2020 SUBJECTIVE: Patient remain in surgical floor. Patient was seen on round last evening He tolerate with his diet. PHYSICAL EXAMINATION: GENERAL: Currently, the patient is lying down in bed comfortable with no acute respiratory distress, generalized. The patient is alert and awake. GCS 15. VITAL sign stable LUNGS: Clear bilaterally. HEART: Regular rate and rhythm. ABDOMEN: Atraumatic. No bruising. No tender to palpation. Nondistended. Bowel sounds active. Patient is on peritoneal dialysis PELVIS: Stable. EXTREMITIES: Neurovascularly intact x4. NEUROLOGIC: No focal neurology deficits. ASSESSMENT: 1. Status post ground level fall 2. R hip fracture- S/P repaired 3. UTI 3. HX of afib, HTN PLAN: continue pain control. will work with PT/ OT today. Continue supportive care . Placement is pending P
[2020-04-27] MEDS: Aspirin 81 mg Enteric Coated Tablet PO SCH ×2 (08:31→20:42)
[2020-04-27] MEDS: Ascorbic Acid 500 mg Chewable Tablet PO SCH ×2 (08:31→20:42)
[2020-04-27] MEDS: Ferrous Sulfate 325 MG TAB PO SCH ×2 (08:31→17:13)
[2020-04-27] MEDS: Carvedilol 6.25 MG TAB PO SCH (08:31)
[2020-04-27] MEDS: Amlodipine 5 MG TAB PO SCH (08:31)
[2020-04-27] MEDS: Oxybutynin 5 MG TAB PO SCH ×2 (08:32→20:41)
[2020-04-27] MEDS: Polyethylene Glycol 3350 17 GM Packet PO SCH (08:41)
[2020-04-27] MEDS: Senokot S 8.6-50 MG TAB PO SCH ×2 (08:41→20:42)
[2020-04-27] MEDS: Scopolamine 1.5 mg/72 hour Patch TD SCH (10:17)
[2020-04-27] MEDS: Phenazopyridine HCl 97.5 MG TABLET PO PRN (14:46)
--- NOTE | 2020-04-27 19:01 | PRG ---
DATE OF SERVICE: 04/27/2020 SUBJECTIVE: The patient remains on the surgical floor, awake, alert, in no distress. The patient is postop day #4, status post repair of her right intertrochanteric femur fracture. The patient had no overnight events. The patient has some mild pain with movement. The patient continues to work with Physical Therapy. The patient had complained of some urinary spasms yesterday evening and was given Azo with some improvement. OBJECTIVE: VITAL SIGNS: Blood pressure 137/83, pulse 85, temperature 97.6, respirations 16, SpO2 of 95% on room air. GENERAL: Elderly female, awake, alert, in no distress, sitting up in hospital bed, drinking Ensure. RESPIRATORY: Good inspiratory and expiratory effort, breath sounds are clear. ABDOMEN: Soft, nontender, nondistended. EXTREMITIES: Moves all extremities, neurovascularly intact x4. Right hip dressing is clean, dry, and intact. NEUROLOGIC: No focal deficits. LABORATORY DATA: There are no new labs to evaluate today. IMPRESSION: 1. Status post ground level fall. 2. Right intertrochanteric femur fracture, postop day #3, status post repair. 3. Urinary tract infection present on admission, on appropriate antibiotics according to culture and sensitivity. 4. Hyponatremia, stable. 5. History of hypertension, chronic atrial fibrillation, pacemaker, Watchman, arthritis of right knee, depression, prior cerebrovascular accident without deficit. 6. Postop anemia, stable. PLAN: Continue supportive care and pain regimen. Continue to encourage and increase physical and occupational therapy. Continue to encourage good nutrition for healing. Continue iron and vitamin C for postop anemia. The patient is pending insurance authorization and placement to inpatient rehab, closed to the patient's granddaughter. Plan was discussed with the patient, who agrees. The patient was evaluated by Dr. Lovett during morning rounds. Job ID: [id number]
[2020-04-27] MEDS: Carvedilol 25 MG TAB PO SCH (20:40)
[2020-04-27] MEDS: Lisinopril 10 MG TAB PO SCH (20:41)
[2020-04-28] MEDS: traMADol HCl 50 MG TAB PO SCH ×4 (01:43→20:42)
[2020-04-28] MEDS: Acetaminophen 500 MG TAB PO SCH ×4 (01:43→20:41)
--- NOTE | 2020-04-28 01:50 | PRG ---
DATE OF SERVICE: 04/28/2020 SUBJECTIVE: Ms. Wagner remain in surgical floor. The patient reports pain is well controlled. She is able to work with Physical Therapy and Occupational Therapy. She tolerated with her regular diet. Her urine is adequate. Overall, the patient voices no concern. OBJECTIVE: GENERAL: Currently, the patient is lying in bed comfortable with no acute respiratory distress. VITAL SIGNS: Stable. LUNGS: Clear bilaterally. HEART: Regular rate and rhythm. ABDOMEN: Soft and nondistended. EXTREMITIES: Neurovascularly intact x4. Postop dressing clean, dry, and intact. NEUROLOGIC: No focal neurology deficits. ASSESSMENT: 1. Status post ground level fall. 2. Right intertrochanteric femur fracture, status post repair. 3. Urinary tract infection, treated. 4. Hyponatremia, stable. 5. History of hypertension, atrial fibrillation, pacemaker, stable. PLAN: Plan will be continue supportive care. Continue pain control. Continue working with Physical Therapy and Occupational Therapy. Continue DVT prophylaxis. Anticipate discharge to rehabilitation facility or [facility] facility, placement is pending. Job ID: [id number]
[2020-04-28] MEDS: Ciprofloxacin 500 MG TAB PO SCH ×2 (05:24→20:41)
[2020-04-28] MEDS: Polyethylene Glycol 3350 17 GM Packet PO SCH (09:25)
[2020-04-28] MEDS: Phenazopyridine HCl 97.5 MG TABLET PO PRN (09:26)
[2020-04-28] MEDS: Ferrous Sulfate 325 MG TAB PO SCH ×2 (09:26→17:37)
[2020-04-28] MEDS: Oxybutynin 5 MG TAB PO SCH ×2 (09:26→20:41)
[2020-04-28] MEDS: Senokot S 8.6-50 MG TAB PO SCH ×2 (09:27→20:41)
[2020-04-28] MEDS: Ascorbic Acid 500 mg Chewable Tablet PO SCH ×2 (09:27→20:42)
[2020-04-28] MEDS: Amlodipine 5 MG TAB PO SCH (09:27)
[2020-04-28] MEDS: Aspirin 81 mg Enteric Coated Tablet PO SCH ×2 (09:27→20:42)
[2020-04-28] MEDS: Carvedilol 6.25 MG TAB PO SCH (09:27)
[2020-04-28] MEDS: Cyclobenzaprine 10 MG TAB PO PRN (11:38)
[2020-04-28] MEDS ORDERED: traMADol HCl 50 MG TAB PO SCH (12:00)
--- NOTE | 2020-04-28 15:57 | PRG ---
DATE OF SERVICE: 04/28/2020 SUBJECTIVE: The patient was seen this morning during rounds. She was sitting up in bed with no signs of acute distress. She did report that her pain in her right hip was persistent and that the pain medication was only helping partially. She was open to increase the dose of the pain medications. OBJECTIVE: VITAL SIGNS: Temperature 98.0, pulse 82, respirations 18, oxygen saturation 93% on room air, and blood pressure 177/79. GENERAL: Well-appearing elderly female, sitting up in bed with no signs of acute distress. PULMONARY: Equal chest rise and fall. Clear breath sounds bilaterally. No signs of acute respiratory distress. CARDIAC: Regular rate and rhythm. GI: Abdomen is soft, nontender, nondistended. EXTREMITIES: 2+ pulses in all extremities. Gross motor and sensation are intact. No significant swelling noted. NEUROLOGIC: GCS is 15. LABORATORY FINDINGS: There are no new laboratory findings to discuss. DIAGNOSTIC FINDINGS: There are no new diagnostic findings to discuss. ASSESSMENT: 1. Status post mechanical fall from standing. 2. Right intertrochanteric femur fracture, status post repair. 3. Urinary tract infection, present on admission. 4. History of atrial fibrillation, Watchman, arthritis of the right knee, hypertension, and traumatic brain injury without any deficit. PLAN: Continue current diet and pain regimen. Continue physical and occupational therapy. We will increase the tramadol from 50 mg scheduled q.6 hours to 100 mg scheduled q.6 hours. The patient is due to complete her 7 days of Cipro today. Her urinary tract infection demonstrated sensitivities that were sensitive to Cipro. The patient is pending discharge to a rehab facility near her granddaughter in [place]. The facility has requested a COVID test. We have placed that order and will follow up the results. She is ready for discharge at this time. This patient was seen and evaluated by Dr. Turpin and myself this morning during rounds. Job ID: [id number] [facility]
[2020-04-28] MEDS: Carvedilol 25 MG TAB PO SCH (20:40)
[2020-04-28] MEDS: Lisinopril 10 MG TAB PO SCH (20:42)
--- NOTE | 2020-04-28 21:28 | PDOC.BPN ---
- Brief Progress Note DATE OF SERVICE: 04/28/2020 SUBJECTIVE: Ms. Wagner remain in surgical floor. The patient reports pain is well controlled. She is able to work with Physical Therapy and Occupational Therapy. She tolerated with her regular diet. Her urine is adequate. Overall , the patient voices no concern. OBJECTIVE: GENERAL: Currently, the patient is lying in bed comfortable with no acute respiratory distress. VITAL SIGNS: Stable. LUNGS: Clear bilaterally. HEART: Regular rate and rhythm. ABDOMEN: Soft and nondistended. EXTREMITIES: Neurovascularly intact x4. Postop dressing clean, dry, and intact. NEUROLOGIC: No focal neurology deficits. ASSESSMENT: 1. Status post ground level fall. 2. Right intertrochanteric femur fracture, status post repair. 3. Urinary tract infection, treated. 4. Hyponatremia, stable. 5. History of hypertension, atrial fibrillation, pacemaker, stable. PLAN: Plan will be continue supportive care. Continue pain control. Continue working with Physical Therapy and Occupational Therapy. Continue DVT prophylaxis. Anticipate discharge to rehabilitation facility or long term home facility , placement is pending.
[2020-04-29] MEDS: Acetaminophen 500 MG TAB PO SCH ×4 (02:58→19:49)
[2020-04-29] MEDS: traMADol HCl 50 MG TAB PO SCH ×4 (02:58→19:48)
[2020-04-29] MEDS: Ascorbic Acid 500 mg Chewable Tablet PO SCH ×2 (08:19→19:48)
[2020-04-29] MEDS: Aspirin 81 mg Enteric Coated Tablet PO SCH ×2 (08:19→19:47)
[2020-04-29] MEDS: Carvedilol 6.25 MG TAB PO SCH (08:20)
[2020-04-29] MEDS: Amlodipine 5 MG TAB PO SCH (08:20)
[2020-04-29] MEDS: Ferrous Sulfate 325 MG TAB PO SCH ×2 (08:20→18:22)
[2020-04-29] MEDS: Oxybutynin 5 MG TAB PO SCH ×2 (08:21→19:47)
[2020-04-29] MEDS: Senokot S 8.6-50 MG TAB PO SCH ×2 (08:21→19:47)
[2020-04-29] MEDS: Polyethylene Glycol 3350 17 GM Packet PO SCH (08:21)
[2020-04-29 12:54] LABS: SARS-CoV-2 MS2 Positive; SARS-CoV-2 N Gene Negative; SARS-CoV-2 S Gene Negative; SARS-CoV-2 orf1ab Negative
--- NOTE | 2020-04-29 15:57 | PRG ---
DATE OF SERVICE: 04/29/2020 SUBJECTIVE: The patient was seen this morning during rounds. She was sitting up in bed napping with no signs of acute distress. She was easily arousable, and reported her pain is well controlled and she worked with PT. OBJECTIVE: VITAL SIGNS: Temperature 98.2, pulse 86, respirations 18, oxygen saturation 97% on room air, and blood pressure 148/74. GENERAL: Well-appearing elderly female, sitting up in bed, asleep, with no signs of acute distress. PULMONARY: Equal chest rise and fall. Clear breath sounds bilaterally. No signs of acute respiratory distress. CARDIAC: Regular rate and rhythm. No murmurs, gallops, or rubs. GI: Abdomen is soft, nontender, and nondistended. EXTREMITIES: 2+ pulses in all extremities. Gross motor and sensation are intact. No significant swelling noted. NEUROLOGIC: GCS is 15. LABORATORY FINDINGS: There are no new laboratory findings to discuss. DIAGNOSTIC FINDINGS: There are no new diagnostic findings to discuss. ASSESSMENT: 1. Status post mechanical fall from standing. 2. Right intertrochanteric femur fracture, status post repair. 3. Urinary tract infection, present on admission. 4. History of atrial fibrillation, Watchman's, arthritis of the right knee, hypertension, and traumatic brain injury. PLAN: Continue current diet and pain regimen. Continue physical and occupational therapy. The patient has been accepted to rehab facility in [place]. She is likely going to be discharged tomorrow. Transport is being set up by Case Management. Job ID: [id number]
[2020-04-29] MEDS: Lisinopril 10 MG TAB PO SCH (19:47)
[2020-04-29] MEDS: Cyclobenzaprine 10 MG TAB PO PRN (19:47)
[2020-04-29] MEDS: Carvedilol 25 MG TAB PO SCH (19:48)
[2020-04-29] MEDS ORDERED: traMADol HCl 50 MG TAB PO PRN (22:10)
[2020-04-29] MEDS ORDERED: Gabapentin 100 MG CAP PO PRN (22:13)
[2020-04-29] MEDS ORDERED: Haloperidol Lactate 5 MG/ML VIAL SLOW IVP SCH (22:15)
[2020-04-30] MEDS: Acetaminophen 500 MG TAB PO SCH ×2 (01:52→09:36)
--- NOTE | 2020-04-30 04:12 | PRG ---
DATE OF SERVICE: 04/30/2020 SUBJECTIVE: The patient remained in surgical floor. Patient was seen on round this evening. The patient is alert and awake; however, she wanted to sit up in the chair and looked uncomfortable, irritable; however, the patient showed no signs of respiratory distress. She is able to work with physical therapy and occupational therapy. Her pain is well controlled and she tolerated with her diet. OBJECTIVE: GENERAL: Currently, the patient is lying in bed in with no acute respiratory distress. GCS 15. The patient is alert and awake, oriented x3. VITAL SIGNS: Stable. LUNGS: Clear bilaterally. HEART: Regular rate and rhythm. ABDOMEN: Soft, nondistended. EXTREMITIES: Neurovascularly intact x4. Postoperative dressing clean, dry, intact. NEUROLOGIC: No focal neurology deficits. ASSESSMENT: 1. Status post mechanical fall. 2. Right intertrochanteric fracture, status post repair. 3. Urinary tract infection, improved, resolved. 4. History of atrial fibrillation. 5. Hypertension. 6. Arthritis. 7. Postoperative delirium. PLAN: We will continue supportive care. Continue pain control. We will stop tramadol 100 q.6 hours scheduled and changed it to 50 p.r.n. q.6 hours. Continue working with Physical Therapy and occupational Therapy. Anticipate placement in rehabilitation facility, waiting for insurance approval. Job ID: [id number]
[2020-04-30] MEDS ORDERED: traMADol HCl 50 MG TAB PO PRN ×2 (08:00→08:01)
[2020-04-30 08:13] VITALS: TEMP 99.2
[2020-04-30] MEDS: Carvedilol 6.25 MG TAB PO SCH (09:36)
[2020-04-30] MEDS: Aspirin 81 mg Enteric Coated Tablet PO SCH (09:36)
[2020-04-30] MEDS: Amlodipine 5 MG TAB PO SCH (09:36)
[2020-04-30] MEDS: Ascorbic Acid 500 mg Chewable Tablet PO SCH (09:36)
[2020-04-30] MEDS: Senokot S 8.6-50 MG TAB PO SCH (09:36)
[2020-04-30] MEDS: Ferrous Sulfate 325 MG TAB PO SCH (09:37)
[2020-04-30] MEDS: Polyethylene Glycol 3350 17 GM Packet PO SCH (09:37)
[2020-04-30] MEDS: Oxybutynin 5 MG TAB PO SCH (09:37)
[2020-04-30 09:38] VITALS: BP 130/74
[2020-04-30] MEDS: Scopolamine 1.5 mg/72 hour Patch TD SCH (09:45)
--- NOTE | 2020-04-30 21:40 | DIS ---
DATE OF ADMISSION: 04/23/2020 DATE OF DISCHARGE: 04/30/2020 ADMISSION DIAGNOSES: Mechanical fall from standing, left intertrochanteric femur fracture, and uncomplicated urinary tract infection. DISCHARGE DIAGNOSES: Mechanical fall from standing, left intertrochanteric femur fracture, and uncomplicated urinary tract infection. CONSULTING PHYSICIAN: Edmar Dumas MD of Orthopedic Surgery. PROCEDURES: The patient went to the OR on April 23, 2020 and had a right TFN of the intertrochanteric femur. HOSPITAL COURSE: The patient is an 85-year-old female, who presented to the Emergency Department after a fall at home. She lives alone. She was found to have a right intertrochanteric femur fracture and a urinary tract infection, for which she received treatment. She also has a history of atrial fibrillation. Postoperatively, she worked with Physical and Occupational Therapy. At the time of discharge, she was tolerating a regular diet. Pain was well controlled. She was voiding and having bowel movements without difficulty. She did receive seven days of Cipro. She was ultimately discharged to rehab facility near [place]. DISCHARGE DISPOSITION: Acute rehab. DISCHARGE CONDITION: Satisfactory. PHYSICAL EXAMINATION: VITAL SIGNS: Temperature 98.2, pulse 82, respirations 12, oxygen saturation 96% on room air, and blood pressure 130/74. GENERAL: Well-appearing elderly female, sitting up in bed with no signs of acute distress. PULMONARY: Equal chest rise and fall. No signs of acute respiratory distress. CARDIAC: Regular rate and rhythm. GI/ABDOMEN: Soft, nontender, and nondistended. EXTREMITIES: 2+ pulses in all extremities. Gross motor and sensation are intact. No significant swelling noted. NEURO: GCS is 15. DISCHARGE INSTRUCTIONS: The patient was discharged to acute rehab facility. Activity as tolerated. A 50% weightbearing to the right lower extremity. She has a regular diet. She has PT/OT, incentive spirometry, and walker. MEDICATIONS: Include; 1. Tylenol. 2. Amlodipine. 3. Vitamin C. 4. Aspirin. 5. Carvedilol. 6. Vitamin D3. 7. Flexeril. 8. Ferrous sulfate. 9. Ibuprofen. 10. Lisinopril. 11. Mirtazapine. 12. Oxybutynin. 13. MiraLAX. 14. Senokot S. 15. Scopolamine. 16. Sertraline. 17. Tramadol. FOLLOWUP APPOINTMENTS: The patient is to follow up with Dr. Dumas. No need for followup with Dr. Lovett [facility]. This is a summary of the patient's hospitalization. For full details, please see her medical record in its entirety. The patient was seen and evaluated by myself on the day of discharge. Job ID: [id number]
== END 2020-04-30 10:50 | DRG 481 ==
LOC: ERS 08:43 → SURG B 13:12
PROVIDERS: ADMIT Specialist; ATTEND Specialist
PROC: 0QS636Z Reposition Right Upper Femur with Intramedullary Internal Fixation Device, Percutaneous Approach (ICD-10-PCS; principal; 2020-04-23)
PROC: 8E0YXBZ Computer Assisted Procedure of Lower Extremity (ICD-10-PCS; 2020-04-23)
DX: S72.141A Displaced intertrochanteric fracture of right femur, initial encounter for closed fracture (principal); I48.20 Chronic atrial fibrillation, unspecified; Z20.828 Contact with and (suspected) exposure to other viral communicable diseases; N39.0 Urinary tract infection, site not specified; E87.1 Hypo-osmolality and hyponatremia; F05 Delirium due to known physiological condition; W18.30XA Fall on same level, unspecified, initial encounter; I10 Essential (primary) hypertension; F41.9 Anxiety disorder, unspecified; F32.9 Major depressive disorder, single episode, unspecified; M17.11 Unilateral primary osteoarthritis, right knee; D64.9 Anemia, unspecified; Z86.73 Personal history of transient ischemic attack (TIA), and cerebral infarction without residual deficits; Z90.49 Acquired absence of other specified parts of digestive tract; Z90.710 Acquired absence of both cervix and uterus; Z95.0 Presence of cardiac pacemaker; Z88.5 Allergy status to narcotic agent; Z87.820 Personal history of traumatic brain injury
CPT/HCPCS: 36415; 51702; 70450; 71045; 76000; 80048; 80053; 81003; 81015; 82550; 83605; 83735; 84100; 84484; 85007; 85025; 85027; 85610; 85730; 87077; 87086; 87186; 87635; 93005; 96374; C1713; G0390; J0690; J1630; J2001; J2270; J2370; J2704; J3010; J3475; J7050; S0028; U0003

== ENCOUNTER 2021-07-28 17:30 | Emergency (ER) | payer MEDICARE ==
[2021-07-28] MEDS ORDERED: Acetaminophen 500 MG TAB ONE (18:27)
[2021-07-28 18:28] LABS: #Lymphocytes 0.7 thou/uL (1.20-3.40); #Monocytes 0.8 thou/uL (0.11-0.59); #Neutrophils 6.7 thou/uL (1.40-6.50); %Basophils 0.1 % (0.0-1.0); %Lymphocytes 8.1 % (21.0-51.0); %Monocytes 10.1 % (0.0-10.0); %Neutrophils 81.6 % (42.0-75.0); Hemoglobin 13.1 g/dL (12.0-16.0); Mean Corpuscular HGB CONC 33.8 g/dL (32.0-36.0); Mean Corpuscular Volume 91.9 fL (78.0-98.0); Mean Platelet Volume 8.4 fL (7.4-10.4); Platelet Count 170 thou/uL (130-400); RBC Distribution Width 12.8 % (11.5-14.5); Red Blood Cell (RBC) Count 4.22 mill/uL (4.20-5.40); White Blood Cell (WBC) Count 8.1 thou/uL (4.8-10.8)
[2021-07-28 18:31] LABS: Bacteria/HPF 3+ HPF (None Seen); Bilirubin Negative (Negative); Blood, Urine 1+ (Negative); Clarity Turbid (Clear); Glucose, Urine (Dipstick) Normal (Negative); Ketone, Urine Trace mg/dL (Negative); Leukocyte 500 Leu/uL (Negative); Nitrite 2+ (Negative); Protein, Urine (Dipstick) 50 mg/dL (Neg-Trace); Specific Gravity, Urine 1.019 (1.002-1.036); Squamous Epithelial 0-3 HPF (0-3); Urobilinogen Normal mg/dL (Less than 2); WBC/HPF Greater than 50 HPF (0-3)
[2021-07-28 18:51] LABS: ALT (SGPT) 12 U/L (8-55); AST (SGOT) 19 U/L (5-34); Albumin 3.3 g/dL (3.4-4.8); Alkaline Phosphatase 61 U/L (40-110); Anion Gap 14 mmol/L (10-20); BUN (Urea Nitrogen) 15 mg/dL (9.8-20.1); CK (CPK) Less than 9 U/L (29-168); Calc. Creatinine Clearance 0 mL/min (70-130); Calcium 8.3 mg/dL (7.8-10.44); Carbon Dioxide 25 mmol/L (23-31); Chloride 97 mmol/L (98-107); Glucose 111 mg/dL (83-110); Lipase 15 U/L (8-78); Potassium 3.3 mmol/L (3.5-5.1); Protein, Total 5.3 g/dL (5.8-8.1); Sodium 133 mmol/L (136-145)
[2021-07-28] MEDS ORDERED: cefTRIAXone\\ROCEPHIN 1 GM VIAL ONE (19:15)
== END 2021-07-28 22:48 | disposition home or self-care (01) ==
LOC: ERS 17:30
DX: N39.0 Urinary tract infection, site not specified (principal); R53.1 Weakness; I48.91 Unspecified atrial fibrillation; I10 Essential (primary) hypertension; M19.90 Unspecified osteoarthritis, unspecified site; Z86.73 Personal history of transient ischemic attack (TIA), and cerebral infarction without residual deficits
CPT/HCPCS: 36415; 71045; 80053; 81003; 81015; 82550; 83605; 83690; 83880; 84484; 85025; 87040; 93005; 96365; 96366; J0696